=== PATIENT | female | born 1950 | race Caucasian/White ===

== ENCOUNTER 2022-09-07 18:22 | Emergency (ER) | payer MEDICARE, MEDICAID, SELFPAY ==
[2022-09-07 18:23] VITALS: BP 109/97; PULSE 78; RESP 18; TEMP 36.4; O2SAT 97; BMI 36.3
--- NOTE | 2022-09-07 19:00 | RAD_ITS ---
INDICATION: Pain EXAMINATION/TECHNIQUE: X-RAY - RIGHT XR Knee Complete 4 Views or More 4 VIEWS COMPARISON: None FINDINGS: SOFT TISSUES: No soft tissue swelling or gas. No radiopaque foreign body. BONES/JOINTS: No acute fracture or subluxation. Tricompartmental joint spaces are maintained. Small tricompartmental osteophytes. No sclerotic or destructive changes observed. RAD/Knee 4 or More Views IMPRESSION: Mild DJD. No acute abnormal finding in the knee. Electronically Signed: Anselmo Rosas MD at 19:23 EDT ,
--- NOTE | 2022-09-07 19:59 | ED.VIS.LOWEX ---
HPI History of Present Illness Chief Complaint: Lower Extremity Injury Informant: patient Narrative Narrative: 1 week gradual onset and worsening right knee pain. Hurts more to bend and to walk on, better to rest. No fevers, chills, swelling that she has noticed, redness, or any other joints affected. She denies any known injury but states that she may have had a minor misstep and twist but she is not sure. She does not have a history of knee problems. PFSH PFS Home Medications atorvastatin 20 mg tablet 20 mg PO DAILY 09/07/22 [History Last Taken Unknown] bupropion HCl 150 mg 24 hr tablet, extended release 150 mg PO DAILY 09/07/22 [History Last Taken Unknown] cholecalciferol (vitamin D3) 125 mcg (5,000 unit) tablet (Vitamin D3) 125 mcg PO DAILY 09/07/22 [History Last Taken Unknown] clopidogrel 75 mg tablet 75 mg PO DAILY 09/07/22 [History Last Taken Unknown] cyanocobalamin (vitamin B-12) 1,000 mcg tablet (Vitamin B-12) 1,000 mcg PO DAILY 09/07/22 [History Last Taken Unknown] loperamide 2 mg capsule 2 mg PO DAILY PRN PRN Loose Stool 09/07/22 [History Last Taken Unknown] metformin 500 mg tablet 500 mg PO BID 09/07/22 [History Last Taken Unknown] metoprolol tartrate 100 mg tablet 100 mg PO DAILY 09/07/22 [History Last Taken Unknown] mirabegron 50 mg tablet,extended release 24 hr (Myrbetriq) 50 mg PO DAILY 09/07/22 [History Last Taken Unknown] montelukast 10 mg tablet 10 mg PO DAILY 09/07/22 [History Last Taken Unknown] pantoprazole 40 mg tablet,delayed release 40 mg PO DAILY 09/07/22 [History Last Taken Unknown] topiramate 50 mg tablet 50 mg PO BID 09/07/22 [History Last Taken Unknown] Allergy/AdvReac Type Severity Reaction Status Date / Time acetaminophen [From Percocet] Allergy Other Verified 09/07/22 18:23 adhesive tape Allergy Rash Verified 09/07/22 18:23 oxycodone [From Percocet] Allergy Other Verified 09/07/22 18:23 Sulfa (Sulfonamide Allergy Other Verified 09/07/22 18:23 Antibiotics) Social History Smoking Status: Former smoker ROS ROS ED Constitutional Constitutional ED: Denies chills or fever(s) Musculoskeletal Musculoskeletal: Reports extremity pain; Denies neck pain Integumentary Denies Abrasions, rash or wounds Neurologic Neurologic: Denies paresthesias or weakness EXAM Physical Exam Const Vital Signs: 09/07/22 18:23 Temperature 97.5 F L Temperature Source Temporal Pulse Rate 78 Respiratory Rate 18 Blood Pressure 109/97 H Blood Pressure Mean 101 Pulse Ox 97 Oxygen Delivery Method Room Air Positive well nourished and well developed General Appearance ED: well developed and NAD Neck full ROM and supple Back/Spine normal ROM and normal to inspection Extremity normal to inspection Extremity Narrative: Excellent range of motion of the right knee, limited at flexion. No definite palpable effusion. Mild tenderness anteromedially, more caudal to the medial aspect of the patellar ligament, which is also mildly sore. Extensor mechanism intact. No specific bony tenderness. No excessive warmth compared to surrounding areas or contralateral knee, no erythema or other skin lesions. Neuro oriented x3, no focal motor deficits and no sensory deficits noted Sensorium / Orientation: alert Psych mental status grossly normal and thought process normal Skin no wounds Rashes: no rashes MDM MDM MDM Narrative Medical decision making narrative: 4 view x-ray series of the right knee was obtained and is negative for anything acute on my interpretation. Radiology in agreement. Specifically, her joint space appears symmetric and does not appear to be severely arthritic, she does not have a large effusion, and I see no radiopaque foreign bodies or signs of a fracture. Patient was given an Ramesh wrap a dose of ibuprofen here and follow-up with orthopedics as advised. She will need follow-up if this persists to evaluate for internal derangement I do not think she needs an arthrocentesis at this time and she was comfortable with that plan. The radiologist did find mild DJD in the knee on x-ray. Radiography Diagnostic Testing: Clinical Impression(s) from Imaging Studies Knee X-Ray 09/07/22 19:00 IMPRESSION: Mild DJD. No acute abnormal finding in the knee. Electronically Signed: Anselmo Rosas MD at 19:23 EDT , Discharge Plan Triage Chief Complaint: Lower Extremity Injury ED Provider: Domingo Stinson Dx/Rx/DC Orders Clinical Impression: Acute pain of right knee Instructions: ED Bandage Elastic Wrap, ED Knee Pain of Uncertain Cause Prescriptions: No Action metformin 500 mg Tablet 500 mg PO BID atorvastatin 20 mg Tablet 20 mg PO DAILY loperamide 2 mg Capsule 2 mg PO DAILY PRN PRN (Reason: Loose Stool) Rx Instructions: administer after each loose stool until symptoms controlled; do not exceed 8 mg per 24 hrs metoprolol tartrate 100 mg Tablet 100 mg PO DAILY cyanocobalamin (vitamin B-12) [Vitamin B-12] 1,000 mcg Tablet 1,000 mcg PO DAILY clopidogrel 75 mg Tablet 75 mg PO DAILY pantoprazole 40 mg Tablet,Delayed Release (Dr/Ec) 40 mg PO DAILY montelukast 10 mg Tablet 10 mg PO DAILY bupropion HCl 150 mg Tablet Extended Release 24 Hr 150 mg PO DAILY topiramate 50 mg Tablet 50 mg PO BID cholecalciferol (vitamin D3) [Vitamin D3] 125 mcg (5,000 unit) Tablet 125 mcg PO DAILY Myrbetriq 50 mg Tablet Extended Release 24 Hr 50 mg PO DAILY Primary Care Provider: Zhou Hoskins Referrals: Zhou Hoskins MD [Primary Care Provider] - Chato Gamez MD [Med Staff - Active Staff] - As soon as possible Disposition Disposition: Home, Self Care
[2022-09-07] MEDS: Ibuprofen 200 MG Tablet 400 MG PO (20:11)
[2022-09-07 20:12] VITALS: BP 120/62; PULSE 73; RESP 16; TEMP 36.1
== END 2022-09-07 20:20 | disposition home or self-care (01) ==
PROVIDERS: Emergency Provider Emergency Medicine; PCP Family Medicine; Visit Provider Emergency Medicine
DX: M25.561 Pain in right knee (principal); Z87.891 Personal history of nicotine dependence; M17.11 Unilateral primary osteoarthritis, right knee
CPT/HCPCS: 73564; 99283

== ENCOUNTER 2022-09-22 17:34 | Emergency (ER) | payer MEDICARE, MEDICAID, SELFPAY ==
[2022-09-22 17:35] VITALS: PULSE 71; RESP 16; TEMP 36.6; O2SAT 100; BMI 37.1
[2022-09-22 17:38] VITALS: BP 158/86
--- NOTE | 2022-09-22 18:49 | ED.VIS.LOWEX ---
HPI History of Present Illness Chief Complaint: Lower Extremity Injury Narrative Narrative: 72-year-old female, on Plavix, presents with right lateral knee pain that has been ongoing for at least 3 weeks. She denies any recent trauma or other injury to her knee. It is worse with weightbearing and walking. She states that she was here 3 weeks ago in the emergency department and has not been able to follow-up with orthopedics. She feels that the pain has been getting worse, and she has times when her right knee will lock up on her. She has to force it to straighten it out, and cannot necessarily completely extend her right knee. Then, over the last few days, there is an area that is swollen on her right medial proximal calf. Once again, she denies any trauma, and it is mildly tender to touch. There has been no change in color of her skin, no fevers or chills, no chest pain or shortness of breath or other symptoms. PFSH PFSH Medical History no medical history Home Medications atorvastatin 20 mg tablet 20 mg PO DAILY 09/07/22 [History Last Taken Unknown] bupropion HCl 150 mg 24 hr tablet, extended release 150 mg PO DAILY 09/07/22 [History Last Taken Unknown] clopidogrel 75 mg tablet 75 mg PO DAILY 09/07/22 [History Last Taken Unknown] cyanocobalamin (vitamin B-12) 1,000 mcg tablet (Vitamin B-12) 1,000 mcg PO DAILY 09/07/22 [History Last Taken Unknown] loperamide 2 mg capsule 2 mg PO DAILY PRN PRN Loose Stool 09/07/22 [History Last Taken Unknown] metformin 500 mg tablet 500 mg PO BID 09/07/22 [History Last Taken Unknown] metoprolol tartrate 100 mg tablet 100 mg PO DAILY 09/07/22 [History Last Taken Unknown] mirabegron 50 mg tablet,extended release 24 hr (Myrbetriq) 50 mg PO DAILY 09/07/22 [History Last Taken Unknown] montelukast 10 mg tablet 10 mg PO DAILY 09/07/22 [History Last Taken Unknown] pantoprazole 40 mg tablet,delayed release 40 mg PO DAILY 09/07/22 [History Last Taken Unknown] topiramate 50 mg tablet 50 mg PO BID 09/07/22 [History Last Taken Unknown] cholecalciferol (vitamin D3) 1,250 mcg (50,000 unit) capsule 50,000 unit PO QWEEK 09/22/22 [History Last Taken Unknown] Allergy/AdvReac Type Severity Reaction Status Date / Time adhesive tape Allergy Rash Verified 09/22/22 17:37 oxycodone [From Percocet] Allergy Other Verified 09/22/22 17:37 Sulfa (Sulfonamide Allergy Other Verified 09/22/22 17:37 Antibiotics) Social History Smoking Status: Former smoker ROS ROS ED ROS Narrative Constitutional: No fever, no chills. HEENT: No sore throat. No neck pain. No loss of vision. No rhinorrhea. Cardiovascular: No chest pain. No palpitations. No pedal edema. Respiratory: No cough, no shortness of breath. Abdominal: No abdominal pain. No nausea. No vomiting. Genitourinary: No dysuria. No hematuria. Musculoskeletal: No myalgias. Right lateral knee pain, right medial proximal calf swelling and tenderness Neurologic: No headaches. No dizziness. No lightheadedness. Skin: No rash. No change in color. Psychiatric: No depression. No anxiety. EXAM Physical Exam Narrative Exam Narrative: Afebrile. Vital signs noted. HEENT: Normocephalic. Atraumatic. PERRL, EOMI. Neck soft and supple. No point tenderness or step off. Cardiovascular: Regular rate and rhythm. No murmurs, rubs, or gallops appreciated. Respiratory: No tachypnea. Lungs clear to auscultation bilaterally. Gastrointestinal: Abdomen soft, nontender, with normoactive bowel sounds. No rebound or guarding. Neurological: Awake. Alert. Nonfocal, nonlateralizing. Skin: No rash. Normal color. No pallor. Musculoskeletal: No pedal edema. Full range of motion extremities. Flexion and extension mechanism of right knee intact, mild tenderness along right lateral meniscal line. Mild swelling noted on skin and medial proximal portion of calf, no palpable cord, no erythema. Palpable dorsalis pedis pulse. Const Vital Signs: 09/22/22 17:35 09/22/22 17:38 Temperature 97.8 F Temperature Source Temporal Pulse Rate 71 Respiratory Rate 16 Blood Pressure 158/86 H Blood Pressure Mean 110 Pulse Ox 100 Oxygen Delivery Method Room Air MDM MDM MDM Narrative Medical decision making narrative: I reviewed the patient's prior record from 3 weeks ago and her emergency department visit. She had x-rays performed in 4 views which showed mild degenerative changes according to the radiologist. I will repeat the x-rays as she states that her pain is worsening, but I do favor that she has more of an internal derangement of her right knee and a possible lateral meniscal tear. I am unsure as to why she has localized swelling in her medial calf area proximally. I have lower suspicion for DVT. Ultrasound will be obtained regardless. I interpreted her right knee x-ray and see osteoarthritis of the lateral compartment but no evidence of an acute fracture. I reviewed the radiology report which confirms my independent interpretation. DVT study report was reviewed and there is no evidence of acute DVT. I am unsure as to the cause of her localized swelling of her right lower extremity medially, but I do feel she can be discharged safely home with follow-up. She will be given an Ramesh wrap and told to take [id number] analgesics and follow-up with orthopedics as soon as possible. She can also follow-up with her primary care provider. Return instructions to the emergency department were reviewed. Disposition is discharged home in stable condition. History & Record Review Discussion w/independent historian: Patient Additional record(s) reviewed:: Prior ED visit Radiography Diagnostic Testing: Clinical Impression(s) from Imaging Studies Knee X-Ray 09/22/22 19:00 IMPRESSION: Degenerative arthrosis. Electronically Signed: Freeman Gruber MD at 19:14 EDT , Venous Duplex 09/22/22 19:56 IMPRESSION: There is no demonstrated deep venous thrombosis. Electronically Signed: Freeman Gruber MD at 20:47 EDT , Discharge Plan Triage Chief Complaint: Lower Extremity Injury ED Provider: Homero Barajas Dx/Rx/DC Orders Clinical Impression: Knee pain, Knee osteoarthritis, Localized swelling of right lower leg Instructions: ED Meniscal Injury Knee Poss, ED Osteoarthritis Prescriptions: No Action metformin 500 mg Tablet 500 mg PO BID atorvastatin 20 mg Tablet 20 mg PO DAILY loperamide 2 mg Capsule 2 mg PO DAILY PRN PRN (Reason: Loose Stool) Rx Instructions: administer after each loose stool until symptoms controlled; do not exceed 8 mg per 24 hrs metoprolol tartrate 100 mg Tablet 100 mg PO DAILY cyanocobalamin (vitamin B-12) [Vitamin B-12] 1,000 mcg Tablet 1,000 mcg PO DAILY clopidogrel 75 mg Tablet 75 mg PO DAILY pantoprazole 40 mg Tablet,Delayed Release (Dr/Ec) 40 mg PO DAILY montelukast 10 mg Tablet 10 mg PO DAILY bupropion HCl 150 mg Tablet Extended Release 24 Hr 150 mg PO DAILY topiramate 50 mg Tablet 50 mg PO BID Myrbetriq 50 mg Tablet Extended Release 24 Hr 50 mg PO DAILY cholecalciferol (vitamin D3) 1,250 mcg (50,000 unit) capsule 50,000 unit PO QWEEK Label Comments: TAKE ONE CAPSULE BY MOUTH EVERY WEEK -SUNDAYS Primary Care Provider: Zhou Hoskins Referrals: Zhou Hoskins MD [Primary Care Provider] - Kailash Vee MD [Med Staff - Active Staff] - As soon as possible Activity Restrictions/Additional Instructions: Follow-up with your primary care physician and/or orthopedics as soon as possible. Use Ramesh wrap for support of your right knee. Disposition Disposition: Home, Self Care
--- NOTE | 2022-09-22 19:00 | RAD_ITS ---
STUDY: XR Knee Complete 4 Views or More 09/22/2022 7:12 PM REASON FOR EXAM: Female, 72 years old. pain TECHNIQUE: XR Knee Complete 4 Views or More RIGHT COMPARISON: None FINDINGS: Normal visualized distal femur. Normal visualized proximal tibia and fibula. Normal proximal tibiofibular articulation. There are atherosclerotic vascular calcifications. There is mild degenerative arthrosis of the medial femorotibial compartment. There is mild degenerative arthrosis of the lateral femorotibial compartment. There is mild degenerative arthrosis of the patellofemoral articulation. The soft tissue structures are unremarkable. RAD/Knee 4 or More Views IMPRESSION: Degenerative arthrosis. Electronically Signed: Freeman Gruber MD at 19:14 EDT ,
--- NOTE | 2022-09-22 19:56 | US_ITS ---
STUDY: VENOUS DOPPLER ULTRASOUND - RIGHT LOWER EXTREMITY REASON FOR EXAM: Female, 72 years old. LEG PAIN AND SWELLING right calf swelling TECHNIQUE: Ultrasound evaluation of the deep vein system to include cov[place]-scale imaging and compression was performed. [place]-scale imaging and Doppler sonographic evaluation, including duplex spectral analysis and qualitative color flow sonography, was performed. COMPARISON: None. FINDINGS: Common Femoral Vein: Normal compression, spontaneity and augmentation. Normal color Doppler. Common Femoral Vein/Greater Saphenous Junction: Normal compression, spontaneity and augmentation. Normal color Doppler. Superficial Femoral Proximal: Normal compression, spontaneity and augmentation. Normal color Doppler. Superficial Femoral Middle: Normal compression, spontaneity and augmentation. Normal color Doppler. Superficial Femoral Distal: Normal compression, spontaneity and augmentation. Normal color Doppler. Popliteal Vein: Normal compression, spontaneity and augmentation. Normal color Doppler. Posterior Tibial Vein: Normal compression, spontaneity and augmentation. Normal color Doppler. Peroneal Vein: Normal compression, spontaneity and augmentation. Normal color Doppler. There is no demonstrated deep venous thrombosis. US/Venous Duplex Imag/Limited/Uni IMPRESSION: There is no demonstrated deep venous thrombosis. Electronically Signed: Freeman Gruber MD at 20:47 EDT ,
[2022-09-22 22:06] VITALS: BP 124/64; PULSE 76; RESP 16; O2SAT 97
== END 2022-09-22 22:07 | disposition home or self-care (01) ==
PROVIDERS: Emergency Provider Emergency Medicine; PCP Family Medicine; Visit Provider Emergency Medicine
DX: M17.11 Unilateral primary osteoarthritis, right knee (principal); M25.561 Pain in right knee; M79.89 Other specified soft tissue disorders; Z87.891 Personal history of nicotine dependence; Z79.899 Other long term (current) drug therapy; Z79.84 Long term (current) use of oral hypoglycemic drugs
CPT/HCPCS: 73564; 93971; 99282

== ENCOUNTER 2023-03-08 18:36 | Emergency (ER) | payer MEDICARE, MEDICAID, SELFPAY ==
[2023-03-08 18:38] VITALS: BP 140/79; PULSE 75; RESP 16; TEMP 36.7; O2SAT 100; BMI 36.0
[2023-03-08 20:12] VITALS: O2SAT 98
--- NOTE | 2023-03-08 20:40 | ED.VIS.DYS ---
HPI History of Present Illness Chief Complaint: Shortness of Breath Informant: patient Onset/Context/Timing Onset: Weeks (1) Context: gradual Timing: Continuous Quality: Positive for Dyspnea on exertion Worsened by: Exertion Relieved by: Rest Associated Symptoms cough and green sputum; Negative for rhinorrhea, post nasal drip, ear pain, fever, sore throat, chills, sweats, clear sputum, white sputum or yellow sputum Chest Pain: Positive for Intermittent and - (Pinching) Narrative Narrative: Patient presents with shortness of breath that has been getting worse over the past week. Patient states it is gradually getting worse. Patient states it is worse with any exertion and better with rest. Patient states she is coughing up some green sputum. Patient denies any fevers or chills. Patient admits to some intermittent chest pain that last approximately 5 to 10 minutes. Patient describes it as pinching. Patient states it is over the substernal area. Patient states nothing makes it better nothing makes it worse. Patient also admits to some pain in her right flank that has been constant for the past 2 weeks. Patient denies any dysuria or hematuria. Patient denies any fevers or chills. PE Risk Factors: Negative for Cancer, OCP + Smoking + > 35, Prior DVT or PE, Recent immobilization or Recent surgery [facility] Medical History (Updated 03/08/23 @ 23:[address] Andrea Apple, ) A-fib Chronic kidney disease COPD (chronic obstructive pulmonary disease) Depression Diabetes mellitus GERD (gastroesophageal reflux disease) High cholesterol HTN (hypertension) Osteoarthritis of right knee POTS (postural orthostatic tachycardia syndrome) Home Medications atorvastatin 20 mg tablet 20 mg PO DAILY 09/07/22 [History Last Taken Unknown] bupropion HCl 150 mg 24 hr tablet, extended release 150 mg PO DAILY 09/07/22 [History Last Taken Unknown] clopidogrel 75 mg tablet 75 mg PO DAILY 09/07/22 [History Last Taken Unknown] cyanocobalamin (vitamin B-12) 1,000 mcg tablet (Vitamin B-12) 1,000 mcg PO DAILY 09/07/22 [History Last Taken Unknown] loperamide 2 mg capsule 2 mg PO DAILY PRN PRN Loose Stool 09/07/22 [History Last Taken Unknown] metformin 500 mg tablet 500 mg PO BID 09/07/22 [History Last Taken Unknown] metoprolol tartrate 100 mg tablet 100 mg PO DAILY 09/07/22 [History Last Taken Unknown] mirabegron 50 mg tablet,extended release 24 hr (Myrbetriq) 50 mg PO DAILY 09/07/22 [History Last Taken Unknown] montelukast 10 mg tablet 10 mg PO DAILY 09/07/22 [History Last Taken Unknown] pantoprazole 40 mg tablet,delayed release 40 mg PO DAILY 09/07/22 [History Last Taken Unknown] topiramate 50 mg tablet 50 mg PO BID 09/07/22 [History Last Taken Unknown] cholecalciferol (vitamin D3) 1,250 mcg (50,000 unit) capsule 50,000 unit PO QWEEK 09/22/22 [History Last Taken Unknown] citalopram 20 mg tablet 20 mg PO DAILY 11/19/22 [History Last Taken Unknown] levothyroxine 50 mcg capsule 50 mcg PO DAILY 11/19/22 [History Last Taken Unknown] loratadine 10 mg tablet (Allergy Relief (loratadine)) 10 mg PO DAILY 11/19/22 [History Last Taken Unknown] sucralfate 1 gram tablet 1 g PO BID 11/19/22 [History Last Taken Unknown] trazodone 50 mg tablet 50 mg PO DAILY 11/19/22 [History Last Taken Unknown] amoxicillin 875 mg-potassium clavulanate 125 mg tablet 875 mg (0.875 x 875-125 mg) PO Q12H #10 TABLETS 03/08/23 [Rx Last Taken Unknown] Allergy/AdvReac Type Severity Reaction Status Date / Time adhesive tape Allergy Rash Verified 03/08/23 18:37 oxycodone [From Percocet] Allergy Other Verified 03/08/23 18:37 Sulfa (Sulfonamide Allergy Other Verified 03/08/23 18:37 Antibiotics) Surgical History (Updated 03/08/23 @ 23:[address] Andrea Apple DO) History of ankle surgery History of carpal tunnel surgery Hx of appendectomy Hx of hysterectomy Hx of tubal ligation Social History Smoking Status: Former smoker alcohol intake: never ROS ROS ED Constitutional Constitutional ED: Denies chills or fever(s) Eyes Eyes: Denies blurry vision or change in vision ENT ENT ED: Reports rhinorrhea; Denies sore throat Cardiovascular Cardiovascular: Reports chest pain; Denies palpitations Respiratory/Chest Respiratory/Chest: Reports cough and dyspnea Gastrointestinal Gastrointestinal: Denies nausea or vomiting Genitourinary Genitourinary ED: Denies dysuria or hematuria Musculoskeletal Musculoskeletal: Reports neck pain; Denies back pain Integumentary Denies abscess or rash Neurologic Neurologic: Denies headache(s) or weakness Allergic/Immunologic Allergic/Immunologic ED: Denies mouth swelling or urticaria EXAM Physical Exam Const Vital Signs: 03/08/23 18:38 03/08/23 20:12 03/08/23 21:18 Temperature 98.1 F Temperature Source Temporal Pulse Rate 75 71 Respiratory Rate 16 14 Respiratory Effort Normal Non-Labored Respiratory Depth Normal Respiratory Pattern Normal Normal Blood Pressure 140/79 H Blood Pressure Mean 99 Pulse Ox 100 Oxygen Delivery Method Room Air Room Air 03/08/23 22:00 Temperature Temperature Source Pulse Rate 74 Respiratory Rate 16 Respiratory Effort Respiratory Depth Respiratory Pattern Blood Pressure 148/74 H Blood Pressure Mean 98 Pulse Ox 96 Oxygen Delivery Method Room Air Positive well nourished and well developed General Appearance ED: well developed and NAD HEENT Reports moist mucous membranes Neck supple and no JVD Resp normal respiratory effort Auscultation: diminished lung sounds diffuse Cardio regular rate and regular rhythm GI non-tender and non-distended Palpation: soft; Negative for rebound tenderness present Back/Spine General Back: CVA tenderness right (Mild) Neuro oriented x3, CN's II-XII intact bilaterally and no sensory deficits noted Juan Coma Scale: document GCS findings Spontaneous Obeys Commands Oriented 15 Sensorium / Orientation: alert Motor Exam: strength 5/5 throughout Psych mental status grossly normal MDM MDM MDM Narrative Medical decision making narrative: Differential diagnosis includes COPD exacerbation, pneumonia, pneumothorax, cardiac dysrhythmia, cardiac ischemia, urinary tract infection, pyelonephritis, and ureteral calculus. EKG will be obtained to assess for cardiac dysrhythmia and cardiac ischemia. Chest x-ray will be obtained to assess for pneumonia and pneumothorax. CT scan of the abdomen pelvis will be obtained to assess for ureteral calculus and pyelonephritis. CBC will be obtained to assess for leukocytosis and anemia. Basic metabolic profile will be obtained to assess for electrolyte abnormality and renal function. High-sensitivity troponin will be obtained to assess for cardiac ischemia. Urinalysis will be obtained to assess for urinary tract infection. Lab Data Attestation: I reviewed the patient's lab results. Lab results narrative: CBC was reviewed and was essentially within normal limits. Basic metabolic profile was reviewed. BUN was 22 and creatinine was 1.66. There are no prior labs available for comparison however, patient states she does have a history of chronic kidney disease. High-sensitivity troponin was reviewed and was normal at 5. Urinalysis was reviewed. Leukocyte esterase was 500 with 5-10 white blood cells. There is rare bacteria. Labs: Laboratory Results - last 24 hr 03/08/23 03/08/23 20:35 20:40 WBC 6.5 RBC 3.88 L Hgb 12.0 Hct 37.8 MCV 97.4 MCH 30.9 MCHC 31.7 L RDW Std Deviation 46.9 H RDW Coeff of [place]hel[place] 13.1 Plt Count 309 MPV 9.8 Immature Gran % (Auto) 0.600 Neut % (Auto) 51.5 Lymph % (Auto) 24.6 [place] % (Auto) 14.5 H Eos % (Auto) 7.7 H Baso % (Auto) 1.1 H Absolute Neuts (auto) 3.4 Absolute Lymphs (auto) 1.60 Nucleated RBC % 0 Sodium 140 Potassium 4.2 Chloride 110 H Carbon Dioxide 26.0 Anion Gap 4 L BUN 22 H Creatinine 1.66 H Estim Creat Clear Calc 29.79 Est GFR (MDRD) Af Amer 39 L Est GFR (MDRD) Non-Af 32 L BUN/Creatinine Ratio 13.3 Glucose 84 Calcium 9.2 Troponin I High Sens 5 Urine Color Yellow Urine Clarity Clear Urine pH 6.0 Ur Specific [place] 1.015 Urine Protein Negative Urine Glucose (UA) Normal Urine Ketones Negative Urine Occult Blood Negative Urine Nitrite Negative Urine Bilirubin Negative Urine Urobilinogen Normal Ur Leukocyte Esterase 500 H Urine RBC 0 SEEN Urine WBC 5-10 SEEN Ur Squamous Epith Cells 0-5 SEEN Ur Renal Epithelial Cell 0-5 SEEN Urine Bacteria RARE Urine Mucus 0 SEEN Radiography Diagnostic Testing: Clinical Impression(s) from Imaging Studies Chest X-Ray 03/08/23 20:50 IMPRESSION: Interstitial lung disease versus fibrosis with multifocal multilobar atelectasis versus scarring. Cannot exclude superimposed subpleural pneumonitis. Clinical correlation recommended. Electronically Signed: Sofia Zapata MD at 21:31 EST , PA and lateral chest x-ray was obtained. There are 2 views. On my independent interpretation, there are chronic changes. There is no acute infiltrate noted. There is no cardiomegaly noted. Bony thorax is normal. Radiologist also interpreted the x-rays and agrees. EKG Initial EKG: Attestation: I personally reviewed and interpreted this EKG as follows: Interpretation: Sinus Rhythm (68) and No Acute Injury Pattern Comments: EKG was obtained. On my independent interpretation, it showed a normal sinus rhythm with a rate of 68. MD interval, QRS interval, and QTc intervals were all normal. [place] was normal. There are no acute ST or T wave changes. There is low voltage across the precordial leads. Prior EKG tracings: not available for review Prior: No Prior Treatment and Re-Evaluation :: Patient was given a DuoNeb aerosol here. Patient was given a dose of morphine. Patient was advised of her findings. Urine culture was ordered. Patient was given a dose of Augmentin here. Patient was given a prescription for Augmentin. Patient was instructed to follow-up with her primary care physician in 5 to 7 days. Patient was instructed return if worse in any way. Patient understood and was agreeable with the plan. All questions were answered. Discharge Plan Triage Chief Complaint: Shortness of Breath ED Provider: Andrea Apple Dx/Rx/DC Orders Clinical Impression: Acute exacerbation of chronic obstructive pulmonary disease, Chronic kidney disease, Urinary tract infection Instructions: ED COPD Flare, ED Cystitis Female Adult Prescriptions: New amoxicillin-pot clavulanate [amoxicillin-pot clavulanate] 875-125 mg tablet 875 mg PO Q12H Qty: 10 0RF No Action citalopram 20 mg tablet 20 mg PO DAILY levothyroxine 50 mcg capsule 50 mcg PO DAILY loratadine [Allergy Relief (loratadine)] 10 mg tablet 10 mg PO DAILY sucralfate 1 gram tablet 1 g PO BID trazodone 50 mg tablet 50 mg PO DAILY metformin 500 mg Tablet 500 mg PO BID atorvastatin 20 mg Tablet 20 mg PO DAILY loperamide 2 mg Capsule 2 mg PO DAILY PRN PRN (Reason: Loose Stool) Rx Instructions: administer after each loose stool until symptoms controlled; do not exceed 8 mg per 24 hrs metoprolol tartrate 100 mg Tablet 100 mg PO DAILY cyanocobalamin (vitamin B-12) [Vitamin B-12] 1,000 mcg Tablet 1,000 mcg PO DAILY clopidogrel 75 mg Tablet 75 mg PO DAILY pantoprazole 40 mg Tablet,Delayed Release (Dr/Ec) 40 mg PO DAILY montelukast 10 mg Tablet 10 mg PO DAILY bupropion HCl 150 mg Tablet Extended Release 24 Hr 150 mg PO DAILY topiramate 50 mg Tablet 50 mg PO BID Myrbetriq 50 mg Tablet Extended Release 24 Hr 50 mg PO DAILY cholecalciferol (vitamin D3) 1,250 mcg (50,000 unit) capsule 50,000 unit PO QWEEK Patient Comments: TAKE ONE CAPSULE BY MOUTH EVERY WEEK -SUNDAYS Primary Care Provider: Zhou Hoskins Referrals: Zhou Hoskins MD [Primary Care Provider] - 3-5 Days Disposition Disposition: Home, Self Care
--- NOTE | 2023-03-08 20:50 | RAD_ITS ---
STUDY: X-RAY CHEST REASON FOR EXAM: Female, 72 years old. Dyspnea TECHNIQUE: PA and lateral views of the chest. COMPARISON: None. FINDINGS: Mild interstitial prominence predominantly in a subpleural distribution concerning for pneumonitis versus interstitial lung disease/pulmonary fibrosis. Areas of scarring versus atelectasis within the right perihilar region and bilateral lower lobes. There is no demonstrated pleural abnormality. Normal size heart. Normal mediastinum and saul. Normal visualized pulmonary arteries. There is atherosclerotic calcification of the aortic arch with tortuosity. There is demineralization of the osseous structures. There is degenerative osteoarthritis of the bilateral shoulders and spine. Abundant fecal debris within the colon suggestive of constipation. RAD/Chest PA and Lateral IMPRESSION: Interstitial lung disease versus fibrosis with multifocal multilobar atelectasis versus scarring. Cannot exclude superimposed subpleural pneumonitis. Clinical correlation recommended. Electronically Signed: Sofia Zapata MD at 21:31 EST ,
[2023-03-08 20:57] LABS: Mucous, Urine 0 SEEN /hpf (<or=2+); Red Blood Cells-Urine 0 SEEN /hpf (0-5)
[2023-03-08 21:01] LABS: Color, Urine Yellow (Yellow); Glucose, Dipstick Normal (Normal); Ketone-Dipstick Negative (Negative); Leukocyte Esterase-Dipstick 500 /ul (Negative); Nitrite-Dipstick Negative (Negative); Occult Blood-Urine Negative /ul (Negative); Protein-Dipstick Negative (Negative); Specific Gravity, Urine 1.015 (1.002-1.030); Urine Bilirubin Dipstick Negative (Negative); Urine Clarity Clear (Clear); Urine Urobilinogen Normal (Normal)
[2023-03-08 21:02] LABS: Absolute Neutrophil Count 3.4 X10^3/uL (2.0-7.7); Basophil# 0.07 X10^3/uL; Basophil% 1.1 % (0-1); Eosinophils% 7.7 % (0-5); Hematocrit 37.8 % (37-47); Lymphocyte % 24.6 % (19-41); Mean Corp Hgb Conc 31.7 g/dL (32-36); Mean Corpuscular Hgb 30.9 pg (27.0-32.0); Mean Corpuscular Volume 97.4 fL (81-99); Mean Platelet Vol. 9.8 fl (6.2-12.0); Monocyte# 0.94 X10^3/uL; Monocyte% 14.5 % (0-10); NRBC Flagged by Analyzer 0 % (0-5); Neutrophil # 3.35 X10^3/uL (2.7-7.7); Neutrophil % 51.5 % (47-70); Platelet Count 309 K/mm3 (150-450); RBC Distribution Width CV 13.1 % (11.6-14.6); RBC Distribution Width SD 46.9 fl (35.1-43.9); Red Blood Count 3.88 M/mm3 (4.2-5.4); White Blood Count 6.5 K/mm3 (4.4-11.0)
[2023-03-08 21:18] VITALS: PULSE 71; RESP 14
[2023-03-08 21:18] LABS: Renal Epithelial Cells 0-5 SEEN /hpf (0-5); Squamous Epithelial Cells - UA 0-5 SEEN /hpf (5-10); White Blood Cells 5-10 SEEN /hpf (0-5)
[2023-03-08] MEDS: Ipratropium/Albuterol Sulfate 3 ML AMPUL.NEB INHALATION (21:18)
[2023-03-08 21:19] LABS: Bacteria RARE /hpf (None Seen)
[2023-03-08 21:23] LABS: Anion Gap 4 (5-15); BUN 22 mg/dL (7-18); BUN/Creat Ratio 13.3 RATIO (10-20); Calcium,Total 9.2 mg/dL (8.5-10.1); Chloride 110 mmol/L (98-107); Creatinine, Serum 1.66 mg/dL (0.55-1.02); EST Glomerular Filtration Rate 32 mL/min (>60); Est Glom Filt Rate - Afr Amer 39 mL/min (>60); Estimated Creatinine Clearance 29.79 ml/min; Glucose 84 mg/dL (74-106); Potassium 4.2 mmol/L (3.5-5.1); Sodium Level 140 mmol/L (136-145); Troponin-I HS 5 pg/mL (3.0-54.0)
[2023-03-08 22:00] VITALS: BP 148/74; PULSE 74; RESP 16; O2SAT 96
--- NOTE | 2023-03-08 22:37 | CT_ITS ---
STUDY: CT ABDOMEN AND PELVIS WITHOUT CONTRAST REASON FOR EXAM: Female, 72 years old. Right flank pain RADIATION DOSAGE (If Supplied By Facility): CTDIvol = ( 20.21 ) mGy, DLP = ( 1080.48 ) mGycm TECHNIQUE: Transaxial images were obtained from the dome of the diaphragm to the symphysis pubis without oral contrast, and without intravenous contrast. Sagittal and coronal images were reconstructed. Individualized dose optimization techniques were used for this CT. COMPARISON: None. FINDINGS: Lung bases reveal subpleural interstitial changes with honeycombing concerning for pulmonary fibrosis. Mild groundglass opacities in a subpleural and lower lobe distribution does not exclude superimposed pneumonitis. Normal cardiac size with coronary artery calcifications. Low-attenuation structure within the left liver lobe junction with the right lobe just below the dome of the diaphragm measuring 1.5 cm compatible with liver cysts. Otherwise normal liver. Normal gallbladder and extrahepatic biliary system. Normal spleen. Normal pancreas. Normal bilateral adrenal glands. Normal right kidney. Normal left kidney. Normal visualized stomach. Normal small intestine. Mild diverticulosis with no signs of diverticulitis. There are surgical clips in the region of the appendix consistent with a prior appendectomy. There is diffuse atherosclerotic calcification of the abdominal aorta, without a demonstrated aneurysm. Normal inferior vena cava. Normal retroperitoneum. Normal urinary bladder. There is absence of the uterus consistent with a prior hysterectomy. Normal abdominal wall. There are diffuse degenerative changes of the visualized lumbar spine. Stable diffuse osteopenia. CT/Abdomen/Pelvis without Cont IMPRESSION: Unremarkable bilateral kidneys with no hydronephrosis or intrarenal stone. Remainder of abdominal viscera within normal limits. Mild increased fecal debris within the colon, cannot exclude mild constipation. Mild diverticulosis with no signs of diverticulitis. Question prior appendectomy otherwise no bowel obstruction or focal inflammatory process throughout the gastrointestinal tract. Electronically Signed: Sofia Zapata MD at 23:12 EST ,
[2023-03-08] MEDS: Morphine 4 MG/ML Syringe IV (22:43)
[2023-03-08 23:40] VITALS: PULSE 63; RESP 12; O2SAT 99
[2023-03-08] MEDS: Amox/Clavulanate 875 MG Tablet PO (23:41)
== END 2023-03-08 23:46 | disposition home or self-care (01) ==
PROVIDERS: Emergency Provider Emergency Medicine; PCP Family Medicine; Visit Provider Emergency Medicine
DX: J44.1 Chronic obstructive pulmonary disease with (acute) exacerbation (principal); E11.22 Type 2 diabetes mellitus with diabetic chronic kidney disease; N39.0 Urinary tract infection, site not specified; N18.9 Chronic kidney disease, unspecified; Z87.891 Personal history of nicotine dependence
CPT/HCPCS: 71046; 74176; 80048; 81001; 84484; 85025; 87077; 87086; 87088; 87186; 93005; 94640; 96374; 99284; J7030; A4216

== ENCOUNTER → 2023-03-15 | Outpatient (CLI) | payer MEDICARE, MEDICAID, SELFPAY ==
--- NOTE | 2023-03-15 08:52 | MRI_ITS ---
EXAM: MR RIGHT LOWER EXTREMITY WITHOUT INTRAVENOUS CONTRAST, KNEE CLINICAL INDICATION: Pain TECHNIQUE: Multiplanar and multisequence MR images of the right knee without intravenous contrast. COMPARISON: September 22, 2022 knee angiography FINDINGS: BONES/JOINTS: Moderate amount of suprapatellar joint fluid. Nonspecific patchy marrow signal alterations involving the proximal tibia. No other concerning bone marrow signal alterations. No fracture. No synovial hypertrophy. No intra-articular body. EXTENSOR MECHANISM: Unremarkable. MEDIAL MENISCUS: Unremarkable. LATERAL MENISCUS: Unremarkable. MEDIAL CAPSULE/SUPPORTING STRUCTURES: Unremarkable. Intact. LATERAL CAPSULE/SUPPORTING STRUCTURES: Unremarkable. Lateral collateral ligamentous complex, inclusive of the popliteal tendon, are intact. ANTERIOR CRUCIATE LIGAMENT: Unremarkable. Intact. POSTERIOR CRUCIATE LIGAMENT: Unremarkable. Intact. MUSCLES: Unremarkable. CARTILAGE: Unremarkable. Intact. FLUID: Small Rosado''s cyst without evidence of inferior leakage or rupture. Moderate suprapatellar joint effusion. OTHER SOFT TISSUES: No soft tissue masses or fluid collections. MRI/Lower Ext Joint Only (Routine) IMPRESSION: 1. Moderate osteoarthrosis and moderate suprapatellar joint effusion with small intact Rosado''s cyst. 2. No other significant internal derangement. Electronically Signed: Christiano Bauer MD at 22:58 EST ,
== END | disposition home or self-care (01) ==
LOC: MRI 14:55
PROVIDERS: PCP Family Medicine
DX: M25.561 Pain in right knee (principal)
CPT/HCPCS: 73721

== ENCOUNTER 2023-04-29 19:37 | Emergency (ER) | payer MEDICARE, MEDICAID, SELFPAY ==
[2023-04-29 19:38] VITALS: BP 155/86; PULSE 81; RESP 16; TEMP 36.4; O2SAT 100; BMI 36.3
--- NOTE | 2023-04-29 19:39 | RAD_ITS ---
STUDY: X-RAY - RIGHT SHOULDER REASON FOR EXAM: Female, 72 years old. PAIN TECHNIQUE: 5 view(s) of the shoulder. COMPARISON: None. FINDINGS: There is moderate degenerative arthrosis of the glenohumeral articulation. There is degenerative arthrosis of the acromioclavicular joint without inferior osseous spur formation. Normal acromion. There is demineralization of the humerus and visualized osseous structures. The soft tissue structures are unremarkable. Normal visualized pulmonary apex. RAD/Shoulder min 2 Views IMPRESSION: Degenerative arthrosis Electronically Signed: Bright Moreno MD at 20:02 EST ,
--- NOTE | 2023-04-29 21:42 | ED.RN ---
PT STATES SHE WAS HAVING CHEST PAIN OFF AND ON WHILE IN THE WAITING ROOM. PT STATES SHE TOLD TRIAGE NURSE,BUT FELT SHE DIDN'T HEAR HER SO SHE DIDN'T SAY ANYMORE.PT EDUCATED ON IMPORTANCE OF SPEAKING UP WHEN HAVING CHEST PAIN.
--- NOTE | 2023-04-29 21:48 | RAD_ITS ---
STUDY: X-RAY CHEST REASON FOR EXAM: Female, 72 years old. chest pain TECHNIQUE: Single AP portable view of the chest. COMPARISON: 03/08/2023 FINDINGS: EKG leads overlie the chest Chronic interstitial changes in both lung hernandez without a superimposed acute pulmonary process. There is no demonstrated pleural abnormality. Normal size heart. Normal mediastinum and saul. Normal visualized pulmonary arteries. Normal visualized aortic arch and descending thoracic aorta. Normal visualized thoracic spine. Normal visualized ribs, clavicles, and shoulders. There is no demonstrated abnormality of the visualized soft tissue structures of the upper abdomen. RAD/Chest 1 View (Portable) IMPRESSION: Chronic interstitial changes, no superimposed acute pulmonary process Electronically Signed: Bright Moreno MD at 22:08 EST ,
--- NOTE | 2023-04-29 21:49 | ED.RN ---
NATALIO RT MADE AWARE OF NEED FOR EKG.
[2023-04-29 22:05] LABS: Absolute Lymphocyte Count 1.62 X10^3/uL (0.83-4.51); Absolute Neutrophil Count 4.2 X10^3/uL (2.0-7.7); Basophil# 0.05 X10^3/uL; Basophil% 0.7 % (0-1); Eosinophil# 0.36 X10^3/uL; Eosinophils% 5.2 % (0-5); Hematocrit 37.3 % (37-47); Hemoglobin 11.8 g/dL (12.0-15.0); Lymphocyte # 1.62 X10^3/ul (0.83-4.51); Lymphocyte % 23.3 % (19-41); Mean Corp Hgb Conc 31.6 g/dL (32-36); Mean Corpuscular Hgb 30.2 pg (27.0-32.0); Mean Corpuscular Volume 95.4 fL (81-99); Mean Platelet Vol. 9.9 fl (6.2-12.0); Monocyte# 0.67 X10^3/uL; Monocyte% 9.7 % (0-10); NRBC Flagged by Analyzer 0 % (0-5); Neutrophil # 4.22 X10^3/uL (2.7-7.7); Neutrophil % 60.8 % (47-70); Platelet Count 329 K/mm3 (150-450); RBC Distribution Width CV 12.6 % (11.6-14.6); RBC Distribution Width SD 43.8 fl (35.1-43.9); Red Blood Count 3.91 M/mm3 (4.2-5.4); White Blood Count 6.9 K/mm3 (4.4-11.0)
[2023-04-29 22:21] LABS: Anion Gap 7 (5-15); BUN 22 mg/dL (7-18); BUN/Creat Ratio 13.5 RATIO (10-20); Calcium,Total 9.4 mg/dL (8.5-10.1); Chloride 109 mmol/L (98-107); Creatinine, Serum 1.63 mg/dL (0.55-1.02); EST Glomerular Filtration Rate 33 mL/min (>60); Est Glom Filt Rate - Afr Amer 40 mL/min (>60); Estimated Creatinine Clearance 37.63 ml/min; Glucose 92 mg/dL (74-106); Sodium Level 139 mmol/L (136-145); Troponin-I HS (w/2H Reflex) 4 pg/mL (3.0-54.0)
--- NOTE | 2023-04-29 22:22 | EX.ED.UPPERE ---
HPI History of Present Illness Chief Complaint: Upper Extremity Injury [facility] Medical History A-fib Chronic kidney disease COPD (chronic obstructive pulmonary disease) Depression Diabetes mellitus GERD (gastroesophageal reflux disease) High cholesterol HTN (hypertension) Osteoarthritis of right knee POTS (postural orthostatic tachycardia syndrome) Home Medications atorvastatin 20 mg tablet 20 mg PO DAILY 09/07/22 [History Last Taken Unknown] bupropion HCl 150 mg 24 hr tablet, extended release 150 mg PO DAILY 09/07/22 [History Last Taken Unknown] clopidogrel 75 mg tablet 75 mg PO DAILY 09/07/22 [History Last Taken Unknown] cyanocobalamin (vitamin B-12) 1,000 mcg tablet (Vitamin B-12) 1,000 mcg PO DAILY 09/07/22 [History Last Taken Unknown] loperamide 2 mg capsule 2 mg PO DAILY PRN PRN Loose Stool 09/07/22 [History Last Taken Unknown] metformin 500 mg tablet 500 mg PO BID 09/07/22 [History Last Taken Unknown] metoprolol tartrate 100 mg tablet 100 mg PO DAILY 09/07/22 [History Last Taken Unknown] mirabegron 50 mg tablet,extended release 24 hr (Myrbetriq) 50 mg PO DAILY 09/07/22 [History Last Taken Unknown] montelukast 10 mg tablet 10 mg PO DAILY 09/07/22 [History Last Taken Unknown] pantoprazole 40 mg tablet,delayed release 40 mg PO DAILY 09/07/22 [History Last Taken Unknown] topiramate 50 mg tablet 50 mg PO BID 09/07/22 [History Last Taken Unknown] cholecalciferol (vitamin D3) 1,250 mcg (50,000 unit) capsule 50,000 unit PO QWEEK 09/22/22 [History Last Taken Unknown] citalopram 20 mg tablet 20 mg PO DAILY 11/19/22 [History Last Taken Unknown] levothyroxine 50 mcg capsule 50 mcg PO DAILY 11/19/22 [History Last Taken Unknown] loratadine 10 mg tablet (Allergy Relief (loratadine)) 10 mg PO DAILY 11/19/22 [History Last Taken Unknown] sucralfate 1 gram tablet 1 g PO BID 11/19/22 [History Last Taken Unknown] trazodone 50 mg tablet 50 mg PO DAILY 11/19/22 [History Last Taken Unknown] oxycodone 5 mg tablet 5 mg PO Q6H 03/26/23 [History Last Taken Unknown] Allergy/AdvReac Type Severity Reaction Status Date / Time adhesive tape Allergy Rash Verified 04/29/23 21:34 oxycodone [From Percocet] Allergy Other Verified 04/29/23 21:34 Sulfa (Sulfonamide Allergy Other Verified 04/29/23 21:34 Antibiotics) Surgical History History of ankle surgery History of carpal tunnel surgery Hx of appendectomy Hx of hysterectomy Hx of tubal ligation Social History Smoking Status: Former smoker alcohol intake: never EXAM Physical Exam Const Vital Signs: 04/29/23 19:38 04/29/23 21:49 Temperature 97.5 F L Temperature Source Temporal Pulse Rate 81 Respiratory Rate 16 Blood Pressure 155/86 H Blood Pressure Mean 109 Pulse Ox 100 Oxygen Delivery Method Room Air Room Air MDM MDM MDM Narrative Medical decision making narrative: HISTORY OF PRESENT ILLNESS: 72-year-old female presents with right shoulder pain. Notes she had a minor trauma few days ago and has since pain. Also noted chest pain that started approximate 2 days ago. The patient denies recent surgery in the last 4 weeks or immobilization in the last 3 days, denies previous diagnosis of DVT or PE, hemoptysis, unilateral leg swelling or malignancy with treatment the last 6 months or palliative. No estrogen use noted. Patient denies sudden onset of pain, no tearing sensation, no migratory symptoms, no new numbness, weakness or loss of sensation. Patient denies family history or personal history of Connective tissue disorders (Marfan's Syndrome, Danii Danlos etc) REVIEW OF SYSTEMS: Pertinent positives: Right shoulder pain Pertinent negatives: Shortness of breath, syncope PHYSICAL EXAM: Nursing triage notes reviewed, Vital signs reviewed Constitutional: please see mdm HENT: MMM Eyes: Pupils equal round and reactive to light, Extraocular muscles intact Neck: No stridor, no JVD, full neck ROM Lungs: Clear to auscultation, No wheezing or rales. No increased work of breathing, no conversational dyspnea, no accessory muscle use, no nasal flaring. No respiratory distress noted Heart: Regular rate and rhythm, No murmurs, No rubs and No gallops, 2+ distal pulses (radial, femoral, posterior tibial) in all extremities. TTP over right chest. Abdomen: Soft, there is no tenderness, rigidity, rebound or guarding, no obvious peritoneal signs, no palpable pulsatile abdominal masses, no auscultated abdominal bruit : No CVAT Extremities: No edema TTP over right humerus, intact but painful range of motion right shoulder in flexion extension internal/external rotation Neuro: No focal neurological deficits, cranial nerves II through XII intact, 5/5 strength in all extremities. Intact sensation to light touch in all extremities, 2+ reflexes bilateral patella tendons. Normal gait. No ataxia. Intact axillary nerve function. Skin: No rash or lesions noted MEDICAL DECISION MAKING: Chief Complaint: Right shoulder pain External records reviewed: No recent cardiac catheterizations, echocardiograms noted in the chart Factors affecting care: Type 2 diabetes, GERD, hypothyroidism, hyperlipidemia, COPD Social determinants of health: none History obtained from others: none Consults: none MDM Narrative: Patient was initially hemodynamically stable, afebrile, nontoxic-appearing. Triage orders were placed including x-ray of her chest, x-ray right shoulder, CBC, BMP troponin and EKG I considered the following differential diagnosis: Right shoulder fracture, dislocation, arthritis, ACS, arrhythmia, electro disturbance or anemia pneumonia, pneumothorax I obtained a broad lab and imaging workup to further elucidate the etiology of the patient's complaints. ALL IMAGES (IF OBTAINED) HAVE BEEN PERSONALLY REVIEWED AND INTERPRETED BY MYSELF. CBC with no leukocytosis, mild anemia, no thrombocytopenia BMP without significant electrolyte disturbances, baseline CKD, High-sensitivity troponin is negative, no evidence of myocardial ischemia EKG with normal sinus rhythm, left axis deviation, right bundle branch block normal intervals, no STEMI x-ray of the right shoulder was read reviewed myself shows no evidence of obvious fracture dislocation, radiology I have personally reviewed the patient's chest x-ray. Chest x-ray is unremarkable for pulmonary edema, pneumothorax, pneumonia or focal cardiopulmonary abnormality. The synthesis of the patient's history, physical exam, labs and images suggest a right shoulder strain, right pectoralis strain. I have a low suspicion for PE, dissection or ACS at this time. I did offer the patient additional ED evaluation for delta troponin, possible admission however she refused stating she thinks her shoulder is causing her pain in her chest. She did not want to stay at this time she was alert and orient x 3 she capacity make her medical decisions and chose to be discharged home. She was aware of the risk and benefits of ongoing evaluation, further testing and possible admission and she chose to be discharged with close PCP follow-up. The patient and/or family, caregivers express understanding. The patient and/or family, caregivers agrees with the plan. Shared decision making: I will have a discussion with the patient and or visitors regarding risk/benefits of further testing or admission. They will be made aware of of the risk/benefits inherent in this decision they will be given the opportunity to voice understanding. Total critical care time today provided was at least 0 minutes. This excludes separately billable procedures. Critical care time (if documented) is secondary to the patient having high probability of clinically significant/life threatening deterioration in the patient's condition which required my urgent intervention. Impression: 1. Right shoulder strain 2. Chest pain 3. Anemia 4. CKD Dispo: Discharge Lab Data Attestation: I reviewed the patient's lab results. Labs: Laboratory Results - last 24 hr 04/29/23 21:52 WBC 6.9 RBC 3.91 L Hgb 11.8 L Hct 37.3 MCV 95.4 MCH 30.2 MCHC 31.6 L RDW Std Deviation 43.8 RDW Coeff of Ophelia 12.6 Plt Count 329 MPV 9.9 Immature Gran % (Auto) 0.300 Neut % (Auto) 60.8 Lymph % (Auto) 23.3 Burke % (Auto) 9.7 Eos % (Auto) 5.2 H Baso % (Auto) 0.7 Absolute Neuts (auto) 4.2 Absolute Lymphs (auto) 1.62 Nucleated RBC % 0 Sodium 139 Potassium 4.0 Chloride 109 H Carbon Dioxide 23.0 Anion Gap 7 BUN 22 H Creatinine 1.63 H Estim Creat Clear Calc 37.63 Est GFR (MDRD) Af Amer 40 L Est GFR (MDRD) Non-Af 33 L BUN/Creatinine Ratio 13.5 Glucose 92 Calcium 9.4 Troponin I High Sens 4 Radiography Diagnostic Testing: Clinical Impression(s) from Imaging Studies Shoulder X-Ray 04/29/23 19:39 IMPRESSION: Degenerative arthrosis Electronically Signed: Bright Moreno MD at 20:02 EST , Chest X-Ray 04/29/23 21:48 IMPRESSION: Chronic interstitial changes, no superimposed acute pulmonary process Electronically Signed: Bright Moreno MD at 22:08 EST , Discharge Plan Triage Chief Complaint: Upper Extremity Injury ED Provider: Kris Joyner Dx/Rx/DC Orders Clinical Impression: Strain of shoulder, right Instructions: Rotator Cuff Injury Prescriptions: No Action citalopram 20 mg tablet 20 mg PO DAILY levothyroxine 50 mcg capsule 50 mcg PO DAILY loratadine [Allergy Relief (loratadine)] 10 mg tablet 10 mg PO DAILY sucralfate 1 gram tablet 1 g PO BID trazodone 50 mg tablet 50 mg PO DAILY oxycodone 5 mg tablet 5 mg PO Q6H metformin 500 mg Tablet 500 mg PO BID atorvastatin 20 mg Tablet 20 mg PO DAILY loperamide 2 mg Capsule 2 mg PO DAILY PRN PRN (Reason: Loose Stool) Rx Instructions: administer after each loose stool until symptoms controlled; do not exceed 8 mg per 24 hrs metoprolol tartrate 100 mg Tablet 100 mg PO DAILY cyanocobalamin (vitamin B-12) [Vitamin B-12] 1,000 mcg Tablet 1,000 mcg PO DAILY clopidogrel 75 mg Tablet 75 mg PO DAILY pantoprazole 40 mg Tablet,Delayed Release (Dr/Ec) 40 mg PO DAILY montelukast 10 mg Tablet 10 mg PO DAILY bupropion HCl 150 mg Tablet Extended Release 24 Hr 150 mg PO DAILY topiramate 50 mg Tablet 50 mg PO BID Myrbetriq 50 mg Tablet Extended Release 24 Hr 50 mg PO DAILY cholecalciferol (vitamin D3) 1,250 mcg (50,000 unit) capsule 50,000 unit PO QWEEK Patient Comments: TAKE ONE CAPSULE BY MOUTH EVERY WEEK -SUNDAYS Primary Care Provider: Kari Macedo Referrals: Kari Macedo MD [Primary Care Provider] - Activity Restrictions/Additional Instructions: Thank you for trusting us with your care today! You have been diagnosed with a right shoulder strain. Please take Tylenol (2 pills, 650 mg), ibuprofen (2 pills, 400 mg) every 6 hours as needed for pain and fever control. Please perform progressive mobilization exercises which include moving your shoulder through all of its active ranges of motion including flexion, extension, internal/external rotation. Please do this daily up into the limit of pain. As your pain subsides and removed approximately increased please add weight to further strengthen the rotator cuff muscles. Please return to the emergency department if your symptoms change or worsen. Please follow with your primary care physician for further outpatient evaluation and management. Disposition Disposition: Home, Self Care Discharge Date/Time: 04/29/23 23:05
[2023-04-29 23:05] VITALS: BP 123/66; PULSE 75; RESP 18; O2SAT 96
[2023-04-29 23:54] LABS: Reflex Troponin-HS? (from REC) Y
== END 2023-04-29 23:05 | disposition home or self-care (01) ==
PROVIDERS: Emergency Provider Emergency Medicine; PCP Family Medicine; Visit Provider Emergency Medicine
DX: S46.911A Strain of unspecified muscle, fascia and tendon at shoulder and upper arm level, right arm, initial encounter (principal); J44.9 Chronic obstructive pulmonary disease, unspecified; E11.22 Type 2 diabetes mellitus with diabetic chronic kidney disease; R07.9 Chest pain, unspecified; N18.9 Chronic kidney disease, unspecified; D64.9 Anemia, unspecified; Z87.891 Personal history of nicotine dependence; X58.XXXA Exposure to other specified factors, initial encounter
CPT/HCPCS: 71045; 73030; 80048; 84484; 85025; 93005; 99283; A4216

== ENCOUNTER 2023-06-04 13:27 | Observation (INO) | payer MEDICARE, MEDICAID, SELFPAY ==
[2023-06-04] VITALS (7 sets, daily range): BP systolic 126–156; BP diastolic 46–99; PULSE 64–90; RESP 12–17; TEMP 36.6–37.1; O2SAT 95–100; BMI 35.9; BMI 35.6
--- NOTE | 2023-06-04 13:35 | RAD_ITS ---
STUDY: X-RAY CHEST REASON FOR EXAM: Female, 72 years old. Cough and weakness. TECHNIQUE: AP and lateral views of the chest. COMPARISON: Comparison is made with prior study dated April 29, 2023. FINDINGS: Persistent increased interstitial markings in both lungs worse in the right hemithorax suggestive of scarring. The lungs are clear and expanded. There is no demonstrated pleural abnormality. Normal size heart. Normal mediastinum and saul. Normal visualized pulmonary arteries. There is atherosclerotic tortuosity of the aortic arch and descending thoracic aorta. There are diffuse degenerative changes of the visualized thoracic spine. There is degenerative osteoarthritis of the bilateral shoulders. Prior fusion of the shoulders. There is no demonstrated abnormality of the visualized soft tissue structures of the upper abdomen. RAD/Chest PA and Lateral IMPRESSION: Stable examination. Findings suggestive of scarring at the lung bases more prominent on the right side. Electronically Signed: Royce Marcial MD at 14:42 EST ,
--- NOTE | 2023-06-04 13:35 | EKG12_ITS ---
Test Reason : Blood Pressure : / mmHG Vent. Rate : 074 BPM Atrial Rate : 074 BPM P-R Int : 166 ms QRS Dur : 130 ms QT Int : 440 ms P-R-T Axes : 028 -52 010 degrees QTc Int : 488 ms Normal sinus rhythm Right bundle branch block Left anterior fascicular block Bifascicular block Abnormal ECG Confirmed by Alex Jones ([id number]), online content editor FEDERICA GARCIA ([id number]) on 06/07/2023 9:41:24 AM Referred By: Confirmed By:Alex Jones
--- NOTE | 2023-06-04 13:42 | EX.ED.DYSGE1 ---
HPI <YARITZA Leung - Last Filed: 06/04/23 17:16> History of Present Illness Chief Complaint: General Illness Narrative Narrative: 72-year-old female with PMH of HTN, HLD, A-fib, GERD, COPD, CKD has had a few days of chills, generalized weakness, sore throat and cough, and decreased appetite. She is drinking fluids but states she has not urinated in 24 hours. She feels lightheaded like she might pass out anytime she gets up. She was in her PCPs office this morning but they were unsuccessful at placing an IV for hydration and sent her to the ED. Patient states her roommate recently had a cold. PFSH <YARITZA Leung - Last Filed: 06/04/23 17:16> [facility] Medical History (Updated 06/04/23 @ 17:[address] Do Dugan, DO) A-fib Rivera's esophagus Chronic kidney disease COPD (chronic obstructive pulmonary disease) Depression Diabetes mellitus PALACIOS (dyspnea on exertion) Fibromyalgia GERD (gastroesophageal reflux disease) Hiatal hernia High cholesterol HTN (hypertension) Hyperlipidemia Hypothyroidism IBS (irritable bowel syndrome) Insomnia Migraine headache Nicotine dependence, cigarettes, in remission NILA (obstructive sleep apnea) Osteoarthritis of right knee Overactive bladder Paroxysmal atrial fibrillation POTS (postural orthostatic tachycardia syndrome) Shoulder pain Syncope Tachycardia Vertigo Vitamin D deficiency Home Medications bupropion HCl 150 mg 24 hr tablet, extended release 150 mg PO DAILY 09/07/22 [History Last Taken 06/03/23] clopidogrel 75 mg tablet 75 mg PO DAILY 09/07/22 [History Last Taken 06/03/23] cyanocobalamin (vitamin B-12) 1,000 mcg tablet (Vitamin B-12) 1,000 mcg PO DAILY 09/07/22 [History Last Taken Unknown] loperamide 2 mg capsule 2 mg PO DAILY PRN PRN Loose Stool 09/07/22 [History Last Taken Unknown] metformin 500 mg tablet 500 mg PO BID 09/07/22 [History Last Taken 06/03/23] mirabegron 50 mg tablet,extended release 24 hr (Myrbetriq) 50 mg PO DAILY 09/07/22 [History Last Taken 06/03/23] montelukast 10 mg tablet 10 mg PO DAILY 09/07/22 [History Last Taken 06/03/23] pantoprazole 40 mg tablet,delayed release 40 mg PO DAILY 09/07/22 [History Last Taken 06/03/23] topiramate 50 mg tablet 50 mg PO BID 09/07/22 [History Last Taken 06/03/23] cholecalciferol (vitamin D3) 1,250 mcg (50,000 unit) capsule 50,000 unit PO QWEEK 09/22/22 [History Last Taken Unknown] citalopram 20 mg tablet 20 mg PO DAILY 11/19/22 [History Last Taken 06/03/23] loratadine 10 mg tablet (Allergy Relief (loratadine)) 10 mg PO DAILY 11/19/22 [History Last Taken 06/03/23] sucralfate 1 gram tablet 1 g PO BID 11/19/22 [History Last Taken 06/03/23] amitriptyline 25 mg tablet 25 mg PO QHS 05/26/23 [History Last Taken 06/03/23] rimegepant 75 mg disintegrating tablet (Nurtec ODT) 75 mg PO ONCE PRN migraine headache 05/26/23 [History Last Taken Unknown] albuterol sulfate 90 mcg/actuation aerosol inhaler 2 inh inhalation TID PRN shortness of breath or wheezing 05/28/23 [History Last Taken 06/03/23] atorvastatin 40 mg tablet 40 mg PO QHS 05/28/23 [History Last Taken 06/03/23] azelastine 137 mcg (0.1 %) nasal spray aerosol 1 spray intranasal BID 05/28/23 [History Last Taken 06/03/23] fluticasone fur. 200 mcg-umeclid 62.5 mcg-vilant 25 mcg inhalat.powder (Trelegy Ellipta) 1 inh inhalation DAILY 05/28/23 [History Last Taken 06/03/23] metoprolol succinate 100 mg tablet,extended release 24 hr 100 mg PO DAILY 05/28/23 [History Last Taken 06/03/23] tizanidine 4 mg tablet 4 mg PO BID PRN muscle spasticity 05/28/23 [History Last Taken Unknown] trazodone 100 mg tablet 100 mg PO QHS 05/28/23 [History Last Taken 06/03/23] levothyroxine 50 mcg tablet 50 mcg PO DAILY 06/04/23 [History Last Taken 06/03/23] Allergy/AdvReac Type Severity Reaction Status Date / Time adhesive tape Allergy Rash Verified 06/04/23 13:30 Sulfa (Sulfonamide Allergy Other Verified 06/04/23 13:30 Antibiotics) Family History (Updated 05/28/23 @ 17:38 by Tabitha Shelby) Mother Cancer Lung Father Myocardial infarction Son Asthma Surgical History History of ankle surgery History of carpal tunnel surgery Hx of appendectomy Hx of bilateral cataract extraction (~2020) Hx of hysterectomy Hx of neck surgery (~03/2023) Hx of shoulder surgery (~08/2021) Hx of tubal ligation Social History (Updated 05/28/23 @ 16:39 by Tabitha Shelby) Smoking Status: Former smoker how long ago did patient quit smokin years ago alcohol intake: never substance use type: does not use ROS <YARITZA Leung - Last Filed: 06/04/23 17:16> ROS ED ROS Narrative Constitutional: Negative for fever. Positive for chills, malaise. ENT: Positive for sore throat. CVS: Negative for palpitations, chest pain, syncope. Respiratory: Positive for cough. GI: Positive for diarrhea. Negative for abdominal pain, vomiting, melena, hematochezia. : Negative for dysuria. EXAM <YARITZA Leung - Last Filed: 06/04/23 17:16> Physical Exam Narrative Exam Narrative: CONST: Patient sitting in no acute distress. EYES: Normal inspection. ENT: Normal inspection, dry mucous membranes. NECK: Normal inspection. RESP: No respiratory distress, CTAB. CVS: Regular rate and rhythm, no murmur, no gallop. ABD: Soft and nontender, no guarding or rebound, nondistended. SKIN: Color normal, no rash, warm, dry, intact. EXTREMITIES: Normal appearance, no pedal edema. NEURO: Oriented x4. PSYCH: Normal affect. Const Vital Signs: 06/04/23 13:28 06/04/23 15:19 06/04/23 15:21 Temperature 97.8 F Temperature Source Temporal Pulse Rate 84 69 Respiratory Rate 16 Respiratory Effort Normal Respiratory Pattern Normal Blood Pressure 156/99 H 136/63 H Blood Pressure Mean 118 87 Pulse Ox 100 98 Oxygen Delivery Method Room Air Room Air 06/04/23 16:01 Temperature Temperature Source Pulse Rate 66 Respiratory Rate 17 Respiratory Effort Respiratory Pattern Normal Blood Pressure Blood Pressure Mean Pulse Ox Oxygen Delivery Method <Dr. Kris Joyner DO - Last Filed: 06/04/23 17:36> Physical Exam Const Vital Signs: 06/04/23 13:28 06/04/23 15:19 06/04/23 15:21 Temperature 97.8 F Temperature Source Temporal Pulse Rate 84 69 Respiratory Rate 16 Respiratory Effort Normal Respiratory Pattern Normal Blood Pressure 156/99 H 136/63 H Blood Pressure Mean 118 87 Pulse Ox 100 98 Oxygen Delivery Method Room Air Room Air 06/04/23 16:01 Temperature Temperature Source Pulse Rate 66 Respiratory Rate 17 Respiratory Effort Respiratory Pattern Normal Blood Pressure Blood Pressure Mean Pulse Ox Oxygen Delivery Method MDM <YARITZA Leung - Last Filed: 06/04/23 17:16> [facility] Narrative Medical decision making narrative: Patient has had flulike symptoms for the last 3 days. She is presyncopal with movement and feels dehydrated. She appears ill but nontoxic. Vital signs stable. She has very dry mucous membranes with an otherwise benign exam. IV fluids were ordered with blood work. CBC is WNL. BMP shows normal electrolytes and BUN 18, creatinine 1.86. Baseline is around 1.63. EKG is nonischemic and troponin is 7. Swab is positive for influenza A which explains her symptoms. After 1.5 L IV fluids cc bolus she was still very unsteady and only able to take a few steps around the room. She feels too weak to go home. Case will be discussed with the hospitalist for admission due to weakness, influenza A and dehydration. Lab Data Attestation: I reviewed the patient's lab results. Labs: Laboratory Results - last 24 hr 06/04/23 14:10 WBC 5.9 RBC 4.15 L Hgb 12.8 Hct 39.1 MCV 94.2 MCH 30.8 MCHC 32.7 RDW Std Deviation 44.5 H RDW Coeff of Ophelia 12.9 Plt Count 270 MPV 9.9 Immature Gran % (Auto) 0.200 Neut % (Auto) 66.8 Lymph % (Auto) 20.8 Meigs % (Auto) 9.5 Eos % (Auto) 2.4 Baso % (Auto) 0.3 Absolute Neuts (auto) 3.9 Absolute Lymphs (auto) 1.22 Nucleated RBC % 0 Sodium 138 Potassium 3.7 Chloride 107 Carbon Dioxide 22.0 Anion Gap 9 BUN 18 Creatinine 1.86 H Est GFR (MDRD) Af Amer 34 L Est GFR (MDRD) Non-Af 28 L BUN/Creatinine Ratio 9.7 L Glucose 104 Calcium 9.1 Troponin I High Sens 7 Radiography Diagnostic Testing: Clinical Impression(s) from Imaging Studies Chest X-Ray 06/04/23 13:35 IMPRESSION: Stable examination. Findings suggestive of scarring at the lung bases more prominent on the right side. Electronically Signed: Royce Marcial MD at 14:42 EST , ED attending interpretation of 2-view chest x-ray shows normal heart size, no acute infiltrate, edema, or effusion. <Dr. Kris Joyner, - Last Filed: 06/04/23 17:36> [facility] Lab Data Labs: Laboratory Results - last 24 hr 06/04/23 14:10 WBC 5.9 RBC 4.15 L Hgb 12.8 Hct 39.1 MCV 94.2 MCH 30.8 MCHC 32.7 RDW Std Deviation 44.5 H RDW Coeff of Ophelia 12.9 Plt Count 270 MPV 9.9 Immature Gran % (Auto) 0.200 Neut % (Auto) 66.8 Lymph % (Auto) 20.8 Meigs % (Auto) 9.5 Eos % (Auto) 2.4 Baso % (Auto) 0.3 Absolute Neuts (auto) 3.9 Absolute Lymphs (auto) 1.22 Nucleated RBC % 0 Sodium 138 Potassium 3.7 Chloride 107 Carbon Dioxide 22.0 Anion Gap 9 BUN 18 Creatinine 1.86 H Est GFR (MDRD) Af Amer 34 L Est GFR (MDRD) Non-Af 28 L BUN/Creatinine Ratio 9.7 L Glucose 104 Calcium 9.1 Troponin I High Sens 7 Radiography Diagnostic Testing: Clinical Impression(s) from Imaging Studies Chest X-Ray 06/04/23 13:35 IMPRESSION: Stable examination. Findings suggestive of scarring at the lung bases more prominent on the right side. Electronically Signed: Royce Marcial MD at 14:42 EST , Treatment and Re-Evaluation :: ED attending note: I evaluated the patient in conjunction with the [facility]. I agree with his/her statements and above findings. I have personally performed a face to face assessment of the patient and have reviewed the [facility] Note. I performed a substantive portion of the visit including all aspects of the following. I personally saw the patient performed chart review, physical exam, reviewed labs, imaging (if obtained), and formulated a treatment and management plan. This note was generated with [employer] dictation software. It may contain incorrect words, spelling, and punctuation that were not noted in review of the chart prior to signing. Discharge Plan Dx/Rx/DC Orders Clinical Impression: Influenza A, Chronic kidney disease, Dehydration Disposition Disposition: Acute Care [facility]
[2023-06-04 14:24] LABS: Absolute Lymphocyte Count 1.22 X10^3/uL (0.83-4.51); Absolute Neutrophil Count 3.9 X10^3/uL (2.0-7.7); Basophil# 0.02 X10^3/uL; Basophil% 0.3 % (0-1); Eosinophil# 0.14 X10^3/uL; Eosinophils% 2.4 % (0-5); Hematocrit 39.1 % (37-47); Hemoglobin 12.8 g/dL (12.0-15.0); Lymphocyte # 1.22 X10^3/ul (0.83-4.51); Lymphocyte % 20.8 % (19-41); Mean Corp Hgb Conc 32.7 g/dL (32-36); Mean Corpuscular Hgb 30.8 pg (27.0-32.0); Mean Corpuscular Volume 94.2 fL (81-99); Mean Platelet Vol. 9.9 fl (6.2-12.0); Monocyte# 0.56 X10^3/uL; Monocyte% 9.5 % (0-10); NRBC Flagged by Analyzer 0 % (0-5); Neutrophil # 3.92 X10^3/uL (2.7-7.7); Neutrophil % 66.8 % (47-70); Platelet Count 270 K/mm3 (150-450); RBC Distribution Width CV 12.9 % (11.6-14.6); RBC Distribution Width SD 44.5 fl (35.1-43.9); Red Blood Count 4.15 M/mm3 (4.2-5.4); White Blood Count 5.9 K/mm3 (4.4-11.0)
[2023-06-04 14:43] LABS: Anion Gap 9 (5-15); BUN 18 mg/dL (7-18); BUN/Creat Ratio 9.7 RATIO (10-20); Calcium,Total 9.1 mg/dL (8.5-10.1); Chloride 107 mmol/L (98-107); Creatinine, Serum 1.86 mg/dL (0.55-1.02); EST Glomerular Filtration Rate 28 mL/min (>60); Est Glom Filt Rate - Afr Amer 34 mL/min (>60); Glucose 104 mg/dL (74-106); Potassium 3.7 mmol/L (3.5-5.1); Sodium Level 138 mmol/L (136-145); Troponin-I HS 7 pg/mL (3.0-54.0)
[2023-06-04] MEDS: 0.9% Normal Saline (1000mL) 1,000 ML 999 ML IV (14:44)
[2023-06-04] MEDS: Ipratropium/Albuterol Sulfate 3 ML AMPUL.NEB INHALATION ×2 (16:00→23:26)
[2023-06-04] MEDS: 0.9% Normal Saline (500mL Bag) 500 ML 999 ML IV (16:24)
--- NOTE | 2023-06-04 17:26 | HP.PCM.HOS_ITS ---
HPI - General General Date of Admission: 06/04/23 Date of Service: 06/04/23 Chief Complaint: Lightheadedness/dehydration HPI Narrative JUSTINA SILVEIRA, is a 72 F who presented to the emergency department at [facility] with lightheadedness and dehydration. The patient reports that for about 3 days now she had been having some chills, generalized weakness, sore throat, cough and decreased appetite. Patient reports she feels like she is drinking enough fluid but has not really urinated in 24 hours. She was complaining of feeling lightheaded and felt like she may pass out when she gets up. She went to her primary care office this morning and they tried to give her IV fluids there however they were unsuccessful at placing an IV and sent her to the emergency department. She reports that her roommate has recently had a cold as well. She states she had some loose stool yesterday but her bowels are normal today. She reports she is having some mild nausea currently but denies any vomiting. She is having some generalized weakness as well but reports no focal changes. Vital signs on presentation showed temperature of 97.8, heart rate 84, blood pressure was 156/99, respiratory 16 oxygen saturations are 100% on room air. Her CBC is unremarkable and her differential is normal. Her chemistry panel shows normal electrolytes however serum creatinine is 1.86 and it appears her baseline runs between 1.6 and 1.7 so she does appear mildly dry compared to baseline. Troponin was normal at 7. Rapid flu a was positive with negative COVID and RSV. Chest x-ray was unremarkable for any acute findings but does show chronic scarring at the lung bases prominent on the right. EKG shows normal sinus rhythm with an anterior fascicular block and right bundle branch block with poor R wave progression but no ST-T wave changes concerning for acute ischemia. [facility] Medical History A-fib Rivera's esophagus Chronic kidney disease COPD (chronic obstructive pulmonary disease) Depression Diabetes mellitus PALACIOS (dyspnea on exertion) Fibromyalgia GERD (gastroesophageal reflux disease) Hiatal hernia High cholesterol HTN (hypertension) Hyperlipidemia Hypothyroidism IBS (irritable bowel syndrome) Insomnia Migraine headache Nicotine dependence, cigarettes, in remission NILA (obstructive sleep apnea) Osteoarthritis of right knee Overactive bladder Paroxysmal atrial fibrillation POTS (postural orthostatic tachycardia syndrome) Shoulder pain Syncope Tachycardia Vertigo Vitamin D deficiency Home Medications bupropion HCl 150 mg 24 hr tablet, extended release 150 mg PO DAILY 09/07/22 [History Last Taken 06/03/23] clopidogrel 75 mg tablet 75 mg PO DAILY 09/07/22 [History Last Taken 06/03/23] cyanocobalamin (vitamin B-12) 1,000 mcg tablet (Vitamin B-12) 1,000 mcg PO DAILY 09/07/22 [History Last Taken Unknown] loperamide 2 mg capsule 2 mg PO DAILY PRN PRN Loose Stool 09/07/22 [History Last Taken Unknown] metformin 500 mg tablet 500 mg PO BID 09/07/22 [History Last Taken 06/03/23] mirabegron 50 mg tablet,extended release 24 hr (Myrbetriq) 50 mg PO DAILY 09/07/22 [History Last Taken 06/03/23] montelukast 10 mg tablet 10 mg PO DAILY 09/07/22 [History Last Taken 06/03/23] pantoprazole 40 mg tablet,delayed release 40 mg PO DAILY 09/07/22 [History Last Taken 06/03/23] topiramate 50 mg tablet 50 mg PO BID 09/07/22 [History Last Taken 06/03/23] cholecalciferol (vitamin D3) 1,250 mcg (50,000 unit) capsule 50,000 unit PO QWEEK 09/22/22 [History Last Taken Unknown] citalopram 20 mg tablet 20 mg PO DAILY 11/19/22 [History Last Taken 06/03/23] loratadine 10 mg tablet (Allergy Relief (loratadine)) 10 mg PO DAILY 11/19/22 [History Last Taken 06/03/23] sucralfate 1 gram tablet 1 g PO BID 11/19/22 [History Last Taken 06/03/23] amitriptyline 25 mg tablet 25 mg PO QHS 05/26/23 [History Last Taken 06/03/23] rimegepant 75 mg disintegrating tablet (Nurtec ODT) 75 mg PO ONCE PRN migraine headache 05/26/23 [History Last Taken Unknown] albuterol sulfate 90 mcg/actuation aerosol inhaler 2 inh inhalation TID PRN shortness of breath or wheezing 05/28/23 [History Last Taken 06/03/23] atorvastatin 40 mg tablet 40 mg PO QHS 05/28/23 [History Last Taken 06/03/23] azelastine 137 mcg (0.1 %) nasal spray aerosol 1 spray intranasal BID 05/28/23 [History Last Taken 06/03/23] fluticasone fur. 200 mcg-umeclid 62.5 mcg-vilant 25 mcg inhalat.powder (Trelegy Ellipta) 1 inh inhalation DAILY 05/28/23 [History Last Taken 06/03/23] metoprolol succinate 100 mg tablet,extended release 24 hr 100 mg PO DAILY 05/28/23 [History Last Taken 06/03/23] tizanidine 4 mg tablet 4 mg PO BID PRN muscle spasticity 05/28/23 [History Last Taken Unknown] trazodone 100 mg tablet 100 mg PO QHS 05/28/23 [History Last Taken 06/03/23] levothyroxine 50 mcg tablet 50 mcg PO DAILY 06/04/23 [History Last Taken 06/03/23] Allergy/AdvReac Type Severity Reaction Status Date / Time adhesive tape Allergy Rash Verified 06/04/23 13:30 Sulfa (Sulfonamide Allergy Other Verified 06/04/23 13:30 Antibiotics) Family History Mother Cancer Lung Father Myocardial infarction Son Asthma Surgical History History of ankle surgery History of carpal tunnel surgery Hx of appendectomy Hx of bilateral cataract extraction (~2020) Hx of hysterectomy Hx of neck surgery (~03/2023) Hx of shoulder surgery (~08/2021) Hx of tubal ligation Social History (Updated 06/04/23 @ 19:[address] Do Dugan DO) household members: friend(s) housing: apartment Smoking Status: Former smoker how long ago did patient quit smokin years ago alcohol intake: never substance use type: does not use ROS Constitutional Constitutional: Reports anorexia, chills, fatigue, malaise and weakness; Denies change in weight, fever(s), night sweats or other Eyes Eyes: Denies blurry vision, change in eye color, change in vision, discharge from eye(s), double vision, erythema, eye pain, loss of vision or other ENT HEENT: Reports headache(s), nasal congestion, nasal discharge, post nasal drip and sore throat; Denies abnormal hearing, dysphagia, ear pain, epistaxis, hearing loss, sinus pressure or other Respiratory/Chest Respiratory/Chest: Reports cough, dyspnea, shortness of breath at rest and shortness of breath with exertion; Denies excessive phlegm production, hemoptysis, productive cough, wheezing or other Gastrointestinal Gastrointestinal: Reports loose stools and nausea; Denies abdominal pain, coffee ground emesis, constipation, diarrhea, dyspepsia, hematemesis, hematochezia, melena, vomiting or other Genitourinary Genitourinary: Denies burning urination, difficulty urinating, dysuria, hematuria, nocturia, urinary frequency, urinary hesitancy, urinary incontinence, urinary urgency or other Musculoskeletal Musculoskeletal: Reports joint pain, joint stiffness and myalgias Neurologic Neurologic: Denies abnormal gait, abnormal speech, confusion, disequilibrium, dizziness, focal weakness, headache(s), numbness, paresthesias, seizure-like activity, seizures, syncope, tingling, tremor(s) or other Psychiatric Psychiatric: Denies anxiety, depression, homicidal ideation, suicidal ideation or other Endocrine Endocrinology: Denies change in body appearance, cold intolerance, excessive sweating, heat intolerance, polydipsia, polyuria or other Hematologic/Lymphatic Hematologic/Lymphatic: Denies anemia, easy bleeding, easy bruising, lymphadenopathy or other Allergic/Immunologic Allergic/Immunologic: Denies rhinitis, hives, eczemia, asthma or other Vital Signs Vital Signs Vital Signs: 06/04/23 13:28 06/04/23 15:19 06/04/23 15:21 Temperature 97.8 F Temperature Source Temporal Pulse Rate 84 69 Respiratory Rate 16 Respiratory Effort Normal Respiratory Pattern Normal Blood Pressure 156/99 H 136/63 H Blood Pressure Mean 118 87 Pulse Ox 100 98 Oxygen Delivery Method Room Air Room Air 06/04/23 16:01 Temperature Temperature Source Pulse Rate 66 Respiratory Rate 17 Respiratory Effort Respiratory Pattern Normal Blood Pressure Blood Pressure Mean Pulse Ox Oxygen Delivery Method Weight Weight: 101.1 kg Body Mass Index (BMI) 35.9 Physical Exam Const alert, oriented x3, no apparent distress and well nourished; Negative for average body habitus or healthy appearing Constitutional Narrative: Obese, older, white female, sitting up in bed, friend at bedside, patient appears ill but not toxic, also appears chronically ill, stable on 3 and half liters nasal cannula General Appearance: cooperative HEENT normocephalic, head/scalp atraumatic and hearing grossly normal bilaterally HEENT Narrative: Dentition is poor, Mallampati is 3, no thrush, mucous membranes appear slightly dry Eyes PERRL, EOMs intact bilaterally and conjunctivae normal Eyes Narrative: No scleral icterus Neck no lymphadenopathy and supple Neck Narrative: Trachea midline, no thyroid enlargement Resp normal respiratory effort, no retractions, no use of accessory muscles and No clear to auscultation bilaterally Resp Narrative: Diffusely diminished worse at bases and apices, few intermittent scattered wheezes Auscultation: wheezes; Negative for rales or rhonchi Cardio regular rate, regular rhythm, S1 normal heart sound, S2 normal heart sound, no murmurs, no rub, no gallops and no clicks GI normal to inspection, nondistended, normoactive bowel sounds, soft to palpation and non-tender Extremity no clubbing, cyanosis or edema Extremity Narrative: Pedal pulses are 2+ Neuro oriented x3, CN's II-XII intact bilaterally, moves all extremities and no focal motor deficits Speech: speech normal Psych affect normal Psych Narrative: Eye contact is good, patient interacts appropriately Results Lab / Micro Data Attestation: I reviewed the patient's lab results. 06/04/23 14:10 06/04/23 14:10 Labs: Laboratory Results - last 24 hr 06/04/23 14:10: WBC 5.9, RBC 4.15 L, Hgb 12.8, Hct 39.1, MCV 94.2, MCH 30.8, MCHC 32.7, RDW Std Deviation 44.5 H, RDW Coeff of Ophelia 12.9, Plt Count 270, MPV 9.9, Immature Gran % (Auto) 0.200, Neut % (Auto) 66.8, Lymph % (Auto) 20.8, [place] % (Auto) 9.5, Eos % (Auto) 2.4, Baso % (Auto) 0.3, Absolute Neuts (auto) 3.9, Absolute Lymphs (auto) 1.22, Nucleated RBC % 0, Sodium 138, Potassium 3.7, Chloride 107, Carbon Dioxide 22.0, Anion Gap 9, BUN 18, Creatinine 1.86 H, Est GFR (MDRD) Af Amer 34 L, Est GFR (MDRD) Non-Af 28 L, BUN/Creatinine Ratio 9.7 L, Glucose 104, Calcium 9.1, Troponin I High Sens 7 Micro: Microbiology 06/04/23 14:06 Mucosa - Nose SARS-CoV-2, Influenza & RSV (PCR) - Final Influenzae A Imaging Radiology Impression Chest X-Ray 06/04/23 13:35 IMPRESSION: Stable examination. Findings suggestive of scarring at the lung bases more prominent on the right side. Electronically Signed: Royce Marcial MD at 14:42 EST , Assessment & Plan Assessment/Plan (1) Influenza A: (2) Dehydration: (3) Generalized weakness: (4) Debility: PLAN: Plan Acute influenza A -Patient is out of the window for Tamiflu as she is on day 3 of symptoms -Patient is not hypoxic -Pulmonary toilet with as needed and scheduled inhalers -Mucinex -Incentive spirometry -Acapella -Supportive care Serum creatinine elevation secondary to dehydration on CKD stage IIIb -Baseline renal function appears to run between 1.6 and 1.7 -Serum creatinine on presentation was 1.84 -Patient received 1 L of IV fluids emergency department and I have ordered tomorrow for the floor -Will ambulate patient tomorrow to see if her lightheadedness has improved with treatment of her dehydration Lightheadedness secondary to dehydration -IV fluids as noted above -Ambulate patient tomorrow to reassess COPD -Patient is not oxygen dependent -Continue home inhalers -Continue outpatient follow-up with pulmonary medicine Hypothyroidism -Continue home levothyroxine -Check a.m. TSH Vitamin D deficiency -Hold cholecalciferol and restart at discharge Hyperlipidemia -Continue home atorvastatin Rivera's esophagus/GERD/hiatal hernia -Continue home Carafate -Continue home PPI DM-2 -Hold home metformin -SSI -Accu-Cheks as ordered -Cardiac/carb controlled diet NILA -Patient noncompliant--> BiPAP was recommended previously -Utilize as needed oxygen if patient has any desaturations with sleep History of migraines -Hold home migraine medication and utilize if needed -Continue home Topamax Paroxysmal atrial fibrillation/POTS -Currently in sinus rhythm -Patient is not anticoagulated -Continue home metoprolol Hypertension -Continue home metoprolol IBS -Monitor clinically Overactive bladder -Continue home mirabegron Chronic pain -Continue home medication Insomnia -Continue home trazodone Obesity -BMI is 36.0 -Complicates treatment, prognosis, outcomes -Recommend weight loss History of tobacco abuse -Currently in remission -Recommend ongoing cessation DVT prophylaxis -Subcu heparin 3 times daily CODE STATUS -Full code is verified with patient on admission Charges/Coding Visit Charges Inpatient E&M: 22420 Init Hosp L2
[2023-06-04 20:17] LABS: Mucous, Urine 0 SEEN /hpf (<or=2+); Red Blood Cells-Urine 0 SEEN /hpf (0-5)
[2023-06-04] MEDS: Lactated Ringers 1,000 ML 100 ML IV (20:22)
[2023-06-04 20:42] LABS: Color, Urine Yellow (Yellow); Glucose, Dipstick Normal (Normal); Ketone-Dipstick Negative (Negative); Leukocyte Esterase-Dipstick 100 /ul (Negative); Nitrite-Dipstick Negative (Negative); Occult Blood-Urine Negative /ul (Negative); Protein-Dipstick Negative (Negative); Urine Bilirubin Dipstick Negative (Negative); Urine Clarity Clear (Clear); Urine Urobilinogen Normal (Normal)
[2023-06-04 20:50] LABS: Bacteria 1+ /hpf (None Seen); Squamous Epithelial Cells - UA 5-10 SEEN /hpf (5-10); White Blood Cells 0-5 SEEN /hpf (0-5)
[2023-06-04] MEDS: Atorvastatin Calcium 40 MG Tablet PO (22:35)
[2023-06-04] MEDS: Amitriptyline 25 MG Tablet PO (22:35)
[2023-06-04] MEDS: traZODone 100 MG Tablet PO (22:35)
[2023-06-04] MEDS: Heparin Injection (Vial) 5,000 UNIT/ML VIAL 5000 UNIT SC (22:37)
[2023-06-04] MEDS: Topiramate 50 MG Tablet PO (22:37)
[2023-06-04] MEDS: Azelastine HCl NASAL.SRY 1 SPRAY NASAL (22:37)
[2023-06-05] VITALS (8 sets, daily range): BP systolic 105–121; BP diastolic 46–70; PULSE 76–91; RESP 15–18; TEMP 36.6–37; O2SAT 92–98; BMI 36.1
[2023-06-05 00:09] LABS: Bedside Glucose 98 mg/dL (74-106)
[2023-06-05] MEDS: Heparin Injection (Vial) 5,000 UNIT/ML VIAL 5000 UNIT SC ×3 (06:18→21:25)
[2023-06-05] MEDS: Sucralfate 1 GM Tablet PO ×2 (06:18→16:36)
[2023-06-05] MEDS: Levothyroxine 50 MCG Tablet PO (06:18)
[2023-06-05] MEDS: Lactated Ringers 1,000 ML 100 ML IV (06:18)
[2023-06-05 06:52] LABS: Bedside Glucose 107 mg/dL (74-106)
[2023-06-05] MEDS: Ipratropium/Albuterol Sulfate 3 ML AMPUL.NEB INHALATION ×3 (06:55→19:59)
[2023-06-05] MEDS: Budesonide Respules 0.5 MG/2 ML AMPUL.NEB. INHALATION ×2 (06:55→19:59)
[2023-06-05 07:00] LABS: Absolute Lymphocyte Count 1.64 X10^3/uL (0.83-4.51); Absolute Neutrophil Count 2.2 X10^3/uL (2.0-7.7); Basophil# 0.04 X10^3/uL; Basophil% 0.9 % (0-1); Eosinophil# 0.13 X10^3/uL; Eosinophils% 2.9 % (0-5); Hematocrit 32.3 % (37-47); Hemoglobin 10.6 g/dL (12.0-15.0); Lymphocyte # 1.64 X10^3/ul (0.83-4.51); Lymphocyte % 36.2 % (19-41); Mean Corp Hgb Conc 32.8 g/dL (32-36); Mean Corpuscular Hgb 30.5 pg (27.0-32.0); Mean Corpuscular Volume 93.1 fL (81-99); Mean Platelet Vol. 10.2 fl (6.2-12.0); Monocyte# 0.52 X10^3/uL; Monocyte% 11.5 % (0-10); NRBC Flagged by Analyzer 0 % (0-5); Neutrophil # 2.19 X10^3/uL (2.7-7.7); Neutrophil % 48.3 % (47-70); Platelet Count 243 K/mm3 (150-450); RBC Distribution Width SD 44.1 fl (35.1-43.9); Red Blood Count 3.47 M/mm3 (4.2-5.4); White Blood Count 4.5 K/mm3 (4.4-11.0)
[2023-06-05 07:19] LABS: ALB/GLOB Ratio 0.8 RATIO (0.9-2.4); AST(SGOT) 16 U/L (15-37); Alanine Aminotransfer ALT/SGPT 12 U/L (13-56); Albumin, Serum 2.8 g/dL (3.2-5.0); Alkaline Phosphatase 52 U/L (45-117); Anion Gap 5 (5-15); BUN 13 mg/dL (7-18); BUN/Creat Ratio 9.2 RATIO (10-20); Calcium,Total 8.5 mg/dL (8.5-10.1); Chloride 116 mmol/L (98-107); Creatinine, Serum 1.41 mg/dL (0.55-1.02); EST Glomerular Filtration Rate 39 mL/min (>60); Est Glom Filt Rate - Afr Amer 47 mL/min (>60); Estimated Creatinine Clearance 43.37 ml/min; Globulin 3.3 g/dL (2.2-4.2); Glucose 110 mg/dL (74-106); Magnesium 1.9 mg/dL (1.6-2.6); Phosphorus 4.1 mg/dL (2.5-4.9); Potassium 3.3 mmol/L (3.5-5.1); Protein, Total 6.1 g/dL (6.4-8.2); Sodium Level 143 mmol/L (136-145)
--- NOTE | 2023-06-05 08:07 | CPS ---
Pt stated she would do SMI and PEP on own later.
[2023-06-05] MEDS: Azelastine HCl NASAL.SRY 1 SPRAY NASAL (08:53)
[2023-06-05] MEDS: Metoprolol(XL)Succ 100 MG Tablet PO (08:54)
[2023-06-05] MEDS: Pantoprazole Sodium 40 MG Tablet PO (08:55)
[2023-06-05] MEDS: Cyanocobalamin 500 MCG Tablet 1000 MCG PO (08:55)
[2023-06-05] MEDS: Loratadine 10 MG Tablet PO (08:55)
[2023-06-05] MEDS: Vibegron 75 MG TABLET PO (08:56)
[2023-06-05] MEDS: Montelukast 10 MG Tablet PO (08:57)
[2023-06-05] MEDS: Clopidogrel Bisulfate 75 MG Tablet PO (08:57)
[2023-06-05] MEDS: Topiramate 50 MG Tablet PO ×2 (08:58→21:26)
[2023-06-05] MEDS: Citalopram 20 MG Tablet PO (08:58)
[2023-06-05] MEDS: buPROPion (XL) 150 MG TABLET.XL PO (08:58)
[2023-06-05 11:04] LABS: Bedside Glucose 105 mg/dL (74-106)
--- NOTE | 2023-06-05 12:46 | CASEMGMT ---
Addendum entered and electronically signed by Rehana Olivo RN 06/05/23 13:08: Discussed home health options with pt. Pt states she is agreeable to [facility] and if they are not able to accept her, we will review other options to check if they are in-network with her insurance. Referral sent via [facility] to [facility]. NATHAN Loaiza Original Note: NATHAN DOOLEY Discharge Planning Assessment: Face to Face with patient for initial transition planning/care coordination assessment.?NATHAN DOOLEY introduced self and role at [facility]. Pt alert, oriented x3, voices understanding and agreeable to participating in assessment.? Care providers, pharmacy,?and demographics verified. Admitting dx: Influenza A, weakness? LACE Strata: 3 PCP: [facility] Specialists: [facility] --first appt on 06/15 Preferred Pharmacy: [facility] Insurance: [employer] MCR Dual Advantage/DARBY Prescription Benefit:?yes LNOK: granddaughter Miriam Living Arrangements: Pt lives with a roomate in a single story apartment with one step to enter. Pt states she is independent with ADLs and IADLs. Pt states she is able to ambulate in her home although states she gets SOB with minimal activity and she has to take rest breaks between activities. Transportation: pt drives and her roommate also drives if needed DME: quad and straight cane, rollator, tub bench SNF: none HHC: yes, provider in [place], unable to recall exact name. Pt's goal: return home Noted PT recommended additional tx at discharge. Reviewed this recommendation with pt. Pt states she does not leave her home often and would be interested in home health services. List of home health providers in pt's preferred geographic region and including quality and resource use data was obtained and provided to the pt. Insurance website not listing in-network providers. This NATHAN DOOLEY contacted [employer] and textiles sales representative states [facility] is the only provider showing as in-network but states there may be others. Explained this to pt and provided list that include other providers in case [facility] does not accept. We would need to check with alternates on Wednesday based on pt's preference. DC plan: Home with home health for SN and PT services. NATHAN Loaiza
--- NOTE | 2023-06-05 16:27 | PN.HOSP_ITS ---
Reason for Visit Reason for Visit: Diagnoses Dehydration (06/04/23) Influenza due to other identified influenza virus with other respiratory manifestations (06/04/23) Weakness (06/04/23) Other malaise (06/04/23) Subjective Subjective Patient was seen and examined today, she still complains of feeling weak and tired. Patient's creatinine today was 1.41 Objective Data Objective Data Vital Signs: Vital Signs Temp Pulse Resp BP Pulse Ox O2 Del Method 97.9 F 76 16 121/70 H 94 Room Air 06/05/23 08:51 06/05/23 13:06 06/05/23 13:06 06/05/23 08:54 06/05/23 08:51 06/05/23 08:51 Oxygen Delivery Method Room Air Weight: 101.5 kg Body Mass Index (BMI) 36.1 Intake & Output: Intake and Output for Last 24 Hours 06/03/23 06/04/23 06/05/23 23:59 23:59 23:59 Intake Total 1500 / 1500 1493.33 / 1493.33 Balance 1500 / 1500 1493.33 / 1493.33 Lab / Micro Data 06/05/23 06:28 06/05/23 06:28 Labs: Laboratory Results - last 24 hr 06/04/23 20:08: Urine Color Yellow, Urine Clarity Clear, Urine pH 6.0, Ur Specific [place] 1.010, Urine Protein Negative, Urine Glucose (UA) Normal, Urine Ketones Negative, Urine Occult Blood Negative, Urine Nitrite Negative, Urine Bilirubin Negative, Urine Urobilinogen Normal, Ur Leukocyte Esterase 100 H, Urine RBC 0 SEEN, Urine WBC 0-5 SEEN, Ur Squamous Epith Cells 5-10 SEEN, Urine Bacteria 1+, Urine Mucus 0 SEEN 06/04/23 23:52: POC Glucose 98 06/05/23 06:20: POC Glucose 107 H 06/05/23 06:28: WBC 4.5, RBC 3.47 L, Hgb 10.6 L, Hct 32.3 L, MCV 93.1, MCH 30.5, MCHC 32.8, RDW Std Deviation 44.1 H, RDW Coeff of Ophelia 13.0, Plt Count 243, MPV 1 0.2, Immature Gran % (Auto) 0.200, Neut % (Auto) 48.3, Lymph % (Auto) 36.2, [place] % (Auto) 11.5 H, Eos % (Auto) 2.9, Baso % (Auto) 0.9, Absolute Neuts (auto) 2.2, Absolute Lymphs (auto) 1.64, Nucleated RBC % 0, Sodium 143, Potassium 3.3 L, Chl oride 116 H, Carbon Dioxide 22.0, Anion Gap 5, BUN 13, Creatinine 1.41 H, Estim Creat Clear Calc 43.37, Est GFR (MDRD) Af Amer 47 L, Est GFR (MDRD) Non-Af 39 L, BUN/Creatinine Ratio 9.2 L, Glucose 110 H, Calcium 8.5, Phosphorus 4.1, Magnesium 1.9, Total Bilirubin 0.30, AST 16, ALT 12 L, Alkaline Phosphatase 52, Total Protein 6.1 L, Albumin 2.8 L, Globulin 3.3, Albumin/Globulin Ratio 0.8 L 06/05/23 10:44: POC Glucose 105 Micro: Microbiology 06/04/23 14:06 Mucosa - Nose SARS-CoV-2, Influenza & RSV (PCR) - Final Influenzae A Physical Exam Const alert, oriented x3 and no apparent distress General Appearance: cooperative, well kempt and well developed Orientation / Consciousness: awake, oriented to person, oriented to place and oriented to time HEENT normocephalic and moist oral mucous membranes Eyes PERRL, EOMs intact bilaterally and conjunctivae normal Neck supple, no JVD, thyroid normal and no carotid bruits General: trachea midline Resp normal respiratory effort, no retractions, no use of accessory muscles and clear to auscultation bilaterally Auscultation: Negative for rales, rhonchi or wheezes Cardio regular rate, regular rhythm, S1 normal heart sound, S2 normal heart sound, no murmurs, no rub and no gallops GI normal to inspection, nondistended, normoactive bowel sounds, soft to palpation, non-tender and non-distended Extremity no clubbing, cyanosis or edema Skin no rashes or lesions noted General Skin Exam: no breakdown Neuro oriented x3, CN's II-XII intact bilaterally, moves all extremities, no focal motor deficits and no sensory deficits noted Sensorium / Orientation: awake and alert Speech: speech normal Psych affect normal Assessment & Plan Assessment/Plan (1) Debility: PLAN: Plan 1. Acute influenza A-pulse ox will be monitored, supportive care will be given #2 serum creatinine elevation secondary to dehydration-patient's creatinine is improved today, BMP will be rechecked tomorrow #3 generalized weakness secondary to #1 #2-patient is being seen by PT and OT #4 chronic obstructive pulmonary disease-complicates care, medical course, recovery, and prognosis Total clinical time spent by myself addressing the patient's medical issues, reviewing all of her data, and collaborating with patient's care team: 25-minute Charges/Coding Visit Charges Inpatient E&M: 01765 Subs Hosp L1
[2023-06-05 16:55] LABS: Bedside Glucose 124 mg/dL (74-106)
[2023-06-05] MEDS: Acetaminophen 325 MG Tablet 650 MG PO (19:48)
[2023-06-05] MEDS: Atorvastatin Calcium 40 MG Tablet PO (21:25)
[2023-06-05] MEDS: Amitriptyline 25 MG Tablet PO (21:26)
[2023-06-05] MEDS: traZODone 100 MG Tablet PO (21:26)
[2023-06-05 23:24] LABS: Bedside Glucose 105 mg/dL (74-106)
[2023-06-06] VITALS (7 sets, daily range): BP systolic 95–110; BP diastolic 41–67; PULSE 70–76; RESP 16–18; TEMP 36.6–37; O2SAT 88–98; BMI 36.3
[2023-06-06] MEDS: Sucralfate 1 GM Tablet PO (05:14)
[2023-06-06] MEDS: Levothyroxine 50 MCG Tablet PO (05:14)
[2023-06-06] MEDS: Heparin Injection (Vial) 5,000 UNIT/ML VIAL 5000 UNIT SC (05:14)
[2023-06-06] MEDS: Ipratropium/Albuterol Sulfate 3 ML AMPUL.NEB INHALATION ×2 (06:35→12:50)
[2023-06-06] MEDS: Budesonide Respules 0.5 MG/2 ML AMPUL.NEB. INHALATION (06:35)
[2023-06-06 07:03] LABS: Bedside Glucose 97 mg/dL (74-106)
[2023-06-06] MEDS: Azelastine HCl NASAL.SRY 1 SPRAY NASAL (09:03)
[2023-06-06] MEDS: Cyanocobalamin 500 MCG Tablet 1000 MCG PO (09:03)
[2023-06-06] MEDS: Ergocalciferol 1.25 MG (50, 000 UNIT) Capsule PO (09:03)
[2023-06-06] MEDS: Pantoprazole Sodium 40 MG Tablet PO (09:03)
[2023-06-06] MEDS: Citalopram 20 MG Tablet PO (09:03)
[2023-06-06] MEDS: Clopidogrel Bisulfate 75 MG Tablet PO (09:04)
[2023-06-06] MEDS: Loratadine 10 MG Tablet PO (09:04)
[2023-06-06] MEDS: buPROPion (XL) 150 MG TABLET.XL PO (09:04)
[2023-06-06] MEDS: Metoprolol(XL)Succ 100 MG Tablet PO (09:04)
[2023-06-06] MEDS: Topiramate 50 MG Tablet PO (09:05)
[2023-06-06] MEDS: Montelukast 10 MG Tablet PO (09:05)
[2023-06-06] MEDS: Vibegron 75 MG TABLET PO (09:05)
[2023-06-06 10:26] LABS: Anion Gap 6 (5-15); BUN 18 mg/dL (7-18); BUN/Creat Ratio 12.7 RATIO (10-20); Calcium,Total 9.4 mg/dL (8.5-10.1); Chloride 115 mmol/L (98-107); Creatinine, Serum 1.42 mg/dL (0.55-1.02); EST Glomerular Filtration Rate 39 mL/min (>60); Est Glom Filt Rate - Afr Amer 47 mL/min (>60); Estimated Creatinine Clearance 43.25 ml/min; Glucose 103 mg/dL (74-106); Potassium 3.8 mmol/L (3.5-5.1); Sodium Level 143 mmol/L (136-145)
[2023-06-06 10:28] LABS: Bedside Glucose 90 mg/dL (74-106)
--- NOTE | 2023-06-06 10:51 | DCINST_ITS ---
Discharge Instructions Diet Discharge Diet: No restrictions Activity Discharge Activity: Return to Normal Activity Weight Bearing Status: Full weight bearing Follow Up Care Test Results: Test results from this visit will be discussed in further detail at your follow- up appointment, if applicable. Discharge Plan Admission Admit Date/Time: 06/04/23 17:19 Primary Reason for Your Visit: influenza A Attending Provider: Stan Smith Primary Care Provider: Kari Macedo Consulting Providers: Do Dugan Discharge Orders/Prescriptions Prescriptions: Continued citalopram 20 mg tablet 20 mg PO DAILY loratadine [Allergy Relief (loratadine)] 10 mg tablet 10 mg PO DAILY sucralfate 1 gram tablet 1 g PO BID amitriptyline 25 mg tablet 25 mg PO QHS Nurtec ODT 75 mg tablet,disintegrating 75 mg PO ONCE PRN (Reason: migraine headache) Rx Instructions: Q48H trazodone 100 mg tablet 100 mg PO QHS tizanidine 4 mg tablet 4 mg PO BID PRN (Reason: muscle spasticity) albuterol sulfate 90 mcg/actuation HFA aerosol inhaler 2 inh inhalation TID PRN (Reason: shortness of breath or wheezing) Patient Comments: INHALE TWO PUFFS BY MOUTH THREE TIMES DAILY NEEDED Trelegy Ellipta 200-62.5-25 mcg blister with device 1 inh inhalation DAILY Patient Comments: INHALE 1 PUFF BY MOUTH EVERY DAY azelastine 137 mcg (0.1 %) aerosol,spray 1 spray intranasal BID Patient Comments: INSTILL ONE SPRAY IN EACH NOSTRIL TWICE DAILY (ORIG) metoprolol succinate 100 mg tablet extended release 24 hr 100 mg PO DAILY Patient Comments: TAKE ONE TABLET BY MOUTH DAILY AT 9AM atorvastatin 40 mg tablet 40 mg PO QHS Patient Comments: TAKE ONE TABLET BY MOUTH DAILY AT 5PM FOR 3 MONTHS (90 DAYS) metformin 500 mg Tablet 500 mg PO BID loperamide 2 mg Capsule 2 mg PO DAILY PRN PRN (Reason: Loose Stool) Rx Instructions: administer after each loose stool until symptoms controlled; do not exceed 8 mg per 24 hrs cyanocobalamin (vitamin B-12) [Vitamin B-12] 1,000 mcg Tablet 1,000 mcg PO DAILY clopidogrel 75 mg Tablet 75 mg PO DAILY pantoprazole 40 mg Tablet,Delayed Release (Dr/Ec) 40 mg PO DAILY montelukast 10 mg Tablet 10 mg PO DAILY bupropion HCl 150 mg Tablet Extended Release 24 Hr 150 mg PO DAILY topiramate 50 mg Tablet 50 mg PO BID Myrbetriq 50 mg Tablet Extended Release 24 Hr 50 mg PO DAILY cholecalciferol (vitamin D3) 1,250 mcg (50,000 unit) capsule 50,000 unit PO QWEEK Patient Comments: TAKE ONE CAPSULE BY MOUTH EVERY WEEK -SUNDAYS levothyroxine 50 mcg tablet 50 mcg PO DAILY Referrals / Follow Up: Kari Macedo MD [Primary Care Provider] - Within 2 Weeks Disposition Disposition (needs filled in before D/C Order can be placed): Home, Self Care
--- NOTE | 2023-06-06 10:56 | PCM.DC.SUM ---
Providers Date of Admission: 06/04/23 Date of Discharge: 06/06/23 Primary Care Physician: Kari Macedo MD Reason For Visit: INFLUENZA A/ORTHOSTATIS/GENERALIZED WEAKNESS Diagnosis Discharge Diagnosis (1) Debility: Status: Acute Code(s): R53.81 - Other malaise Plan 1. Acute influenza A-pulse ox will be monitored, supportive care will be given #2 serum creatinine elevation secondary to dehydration-patient's creatinine is improved today, BMP will be rechecked tomorrow #3 generalized weakness secondary to #1 #2-patient is being seen by PT and OT #4 chronic obstructive pulmonary disease-complicates care, medical course, recovery, and prognosis Total clinical time spent by myself addressing the patient's medical issues, reviewing all of her data, and collaborating with patient's care team: 25-minute Medications at Discharge Home Medications bupropion HCl 150 mg 24 hr tablet, extended release 150 mg PO DAILY 09/07/22 clopidogrel 75 mg tablet 75 mg PO DAILY 09/07/22 cyanocobalamin (vitamin B-12) 1,000 mcg tablet (Vitamin B-12) 1,000 mcg PO DAILY 09/07/22 loperamide 2 mg capsule 2 mg PO DAILY PRN PRN Loose Stool 09/07/22 metformin 500 mg tablet 500 mg PO BID 09/07/22 mirabegron 50 mg tablet,extended release 24 hr (Myrbetriq) 50 mg PO DAILY 09/07/22 montelukast 10 mg tablet 10 mg PO DAILY 09/07/22 pantoprazole 40 mg tablet,delayed release 40 mg PO DAILY 09/07/22 topiramate 50 mg tablet 50 mg PO BID 09/07/22 cholecalciferol (vitamin D3) 1,250 mcg (50,000 unit) capsule 50,000 unit PO QWEEK 09/22/22 citalopram 20 mg tablet 20 mg PO DAILY 11/19/22 loratadine 10 mg tablet (Allergy Relief (loratadine)) 10 mg PO DAILY 11/19/22 sucralfate 1 gram tablet 1 g PO BID 11/19/22 amitriptyline 25 mg tablet 25 mg PO QHS 05/26/23 rimegepant 75 mg disintegrating tablet (Nurtec ODT) 75 mg PO ONCE PRN migraine headache 05/26/23 albuterol sulfate 90 mcg/actuation aerosol inhaler 2 inh inhalation TID PRN shortness of breath or wheezing 05/28/23 atorvastatin 40 mg tablet 40 mg PO QHS 05/28/23 azelastine 137 mcg (0.1 %) nasal spray aerosol 1 spray intranasal BID 05/28/23 fluticasone fur. 200 mcg-umeclid 62.5 mcg-vilant 25 mcg inhalat.powder (Trelegy Ellipta) 1 inh inhalation DAILY 05/28/23 metoprolol succinate 100 mg tablet,extended release 24 hr 100 mg PO DAILY 05/28/23 tizanidine 4 mg tablet 4 mg PO BID PRN muscle spasticity 05/28/23 trazodone 100 mg tablet 100 mg PO QHS 05/28/23 levothyroxine 50 mcg tablet 50 mcg PO DAILY 06/04/23 Hospital Course Operations None Procedures None Summary of Care Provided Minutes Spent on Discharge: 30 Hospital Course: This 72-year-old white female was seen in the emergency room at [facility] with a chief complaint of chills, generalized weakness, sore throat, and cough. She went to her PCPs office but they were unsuccessful at placing an IV for hydration so she was sent to the ER for evaluation. Labs obtained in the emergency room showed a normal white blood cell count, hemoglobin was 12.8, creatinine was elevated at 1.86, chest x-ray showed a stable examination with evidence of scarring at the lung bases more prominent on the right side. Patient's influenza A test was positive. Patient was given IV fluids in the emergency room but she still felt too weak to go home. Patient was admitted to PCU, she was given IV fluids, labs were monitored, and she was seen by PT and OT. Patient's creatinine improved. On 06/06/2023, patient was seen and examined: On examination she appeared in good health and spirits, she does not appear to be in any distress. Vital signs as documented. Skin warm and dry and without overt rashes. Neck without JVD, thyroid appears normal, trachea is midline, neck is supple. Lungs clear, normal air movement was noted. Heart exam notable for regular rhythm, normal sounds and absence of murmurs, rubs or gallops. Abdomen unremarkable and without evidence of organomegaly, masses, or abdominal aortic enlargement, bowel sounds are present in all 4 quadrants, no abdominal tenderness was noted. Extremities nonedematous, no cyanosis was noted, no clubbing was noted. Neuro: Cranial nerves II through XII are grossly intact, no focal motor deficits were noted, sensation to light touch and pinprick is intact, motor exam 5/5 throughout. Psych: Patient is alert and oriented x3, she does not appear anxious or depressed, she does not appear agitated. Patient was discharged home in stable condition on 06/06/2023. Weight / BMI Weight Weight: 102.3 kg Body Mass Index (BMI) 36.3 ABG / Lab / Microbiology Data 06/05/23 06:28 06/06/23 10:06 Laboratory: Laboratory Results - last 24 hr 06/05/23 10:44: POC Glucose 105 06/05/23 16:34: POC Glucose 124 H 06/05/23 21:31: POC Glucose 105 06/06/23 06:36: POC Glucose 97 06/06/23 10:04: POC Glucose 90 06/06/23 10:06: Sodium 143, Potassium 3.8, Chloride 115 H, Carbon Dioxide 22.0, Anion Gap 6, BUN 18, Creatinine 1.42 H, Estim Creat Clear Calc 43.25, Est GFR (MDRD) Af Amer 47 L, Est GFR (MDRD) Non-Af 39 L, BUN/Creatinine Ratio 12.7, Glucose 103, Calcium 9.4 Microbiology: Microbiology 06/04/23 14:06 Mucosa - Nose SARS-CoV-2, Influenza & RSV (PCR) - Final Influenzae A D/C Instructions Discharge Diet: No restrictions Weight Bearing Status: Full weight bearing Meaningful Use Info Meaningful Use Diagnoses (Choose all that apply): None applicable Discharge Plan Admission Admit Date/Time: 06/04/23 17:19 Primary Reason for Your Visit: influenza A Attending Provider: Stan Smith Primary Care Provider: Kari Macedo Consulting Providers: Do Dugan Discharge Orders/Prescriptions Prescriptions: Continued citalopram 20 mg tablet 20 mg PO DAILY loratadine [Allergy Relief (loratadine)] 10 mg tablet 10 mg PO DAILY sucralfate 1 gram tablet 1 g PO BID amitriptyline 25 mg tablet 25 mg PO QHS Nurtec ODT 75 mg tablet,disintegrating 75 mg PO ONCE PRN (Reason: migraine headache) Rx Instructions: Q48H trazodone 100 mg tablet 100 mg PO QHS tizanidine 4 mg tablet 4 mg PO BID PRN (Reason: muscle spasticity) albuterol sulfate 90 mcg/actuation HFA aerosol inhaler 2 inh inhalation TID PRN (Reason: shortness of breath or wheezing) Patient Comments: INHALE TWO PUFFS BY MOUTH THREE TIMES DAILY NEEDED Trelegy Ellipta 200-62.5-25 mcg blister with device 1 inh inhalation DAILY Patient Comments: INHALE 1 PUFF BY MOUTH EVERY DAY azelastine 137 mcg (0.1 %) aerosol,spray 1 spray intranasal BID Patient Comments: INSTILL ONE SPRAY IN EACH NOSTRIL TWICE DAILY (ORIG) metoprolol succinate 100 mg tablet extended release 24 hr 100 mg PO DAILY Patient Comments: TAKE ONE TABLET BY MOUTH DAILY AT 9AM atorvastatin 40 mg tablet 40 mg PO QHS Patient Comments: TAKE ONE TABLET BY MOUTH DAILY AT 5PM FOR 3 MONTHS (90 DAYS) metformin 500 mg Tablet 500 mg PO BID loperamide 2 mg Capsule 2 mg PO DAILY PRN PRN (Reason: Loose Stool) Rx Instructions: administer after each loose stool until symptoms controlled; do not exceed 8 mg per 24 hrs cyanocobalamin (vitamin B-12) [Vitamin B-12] 1,000 mcg Tablet 1,000 mcg PO DAILY clopidogrel 75 mg Tablet 75 mg PO DAILY pantoprazole 40 mg Tablet,Delayed Release (Dr/Ec) 40 mg PO DAILY montelukast 10 mg Tablet 10 mg PO DAILY bupropion HCl 150 mg Tablet Extended Release 24 Hr 150 mg PO DAILY topiramate 50 mg Tablet 50 mg PO BID Myrbetriq 50 mg Tablet Extended Release 24 Hr 50 mg PO DAILY cholecalciferol (vitamin D3) 1,250 mcg (50,000 unit) capsule 50,000 unit PO QWEEK Patient Comments: TAKE ONE CAPSULE BY MOUTH EVERY WEEK -SUNDAYS levothyroxine 50 mcg tablet 50 mcg PO DAILY Referrals / Follow Up: Kari Macedo MD [Primary Care Provider] - Within 2 Weeks Disposition Disposition (needs filled in before D/C Order can be placed): Home, Self Care Charges/Coding Visit Charges Inpatient E&M: 69659 Disch Hosp
--- NOTE | 2023-06-06 12:02 | NURSING ---
PIV removed. paperwork given and reviewed with pt.
--- NOTE | 2023-06-07 11:07 | CASEMGMT ---
Addendum entered and electronically signed by Rehana Olivo RN 06/07/23 12:45: Pt returned call and left voicemail to call back. This RN CM called pt and discussed [facility] no longer providing services. Pt states she feels she is doing better, denies any difficulty breathing and states she is ambulating around her home without difficulty. Pt denies the need for home health services at this time. Pt denies any additional questions or concerns re: her discharge instruction. DC Plan: Home, self care. NATHAN Loaiza Original Note: RN MIAH F/U: No response received from [facility] referral. Was informed this agency is now closed. This NATHAN CM attempted to contact pt and voicemail received. Message left requesting a return call. NATHAN Loaiza
== END 2023-06-06 13:20 | disposition home or self-care (01) | DRG 641 ==
LOC: ED 17:32 → PCU 17:36
PROVIDERS: Physician Assistant; Admitting Provider Internal Medicine; Emergency Provider Emergency Medicine; PCP Family Medicine; Visit Provider Internal Medicine
DX: E86.0 Dehydration (principal); J44.9 Chronic obstructive pulmonary disease, unspecified; I48.0 Paroxysmal atrial fibrillation; E11.22 Type 2 diabetes mellitus with diabetic chronic kidney disease; N18.32 Chronic kidney disease, stage 3b; E03.9 Hypothyroidism, unspecified; I12.9 Hypertensive chronic kidney disease with stage 1 through stage 4 chronic kidney disease, or unspecified chronic kidney disease; J10.1 Influenza due to other identified influenza virus with other respiratory manifestations; E55.9 Vitamin D deficiency, unspecified; K58.9 Irritable bowel syndrome, unspecified; K22.70 Barrett's esophagus without dysplasia; M79.7 Fibromyalgia; G47.33 Obstructive sleep apnea (adult) (pediatric); E78.00 Pure hypercholesterolemia, unspecified; K21.9 Gastro-esophageal reflux disease without esophagitis; E66.9 Obesity, unspecified; N32.81 Overactive bladder; G47.00 Insomnia, unspecified; G89.29 Other chronic pain; Z79.51 Long term (current) use of inhaled steroids; Z79.02 Long term (current) use of antithrombotics/antiplatelets; Z79.899 Other long term (current) drug therapy; Z79.84 Long term (current) use of oral hypoglycemic drugs; Z87.891 Personal history of nicotine dependence; Z68.35 Body mass index [BMI] 35.0-35.9, adult
CPT/HCPCS: 36415; 71046; 80048; 80053; 81001; 82962; 83735; 84100; 84484; 85025; 87631; 93005; 94640; 94668; 96360; 96361; 96372; 97162; 97166; 97530; 97535; 97802; 99221; 99284; J7030; J7040; J7120; A4216; G0378

== ENCOUNTER → 2023-08-03 | Outpatient (CLI) | payer MEDICARE, MEDICAID, SELFPAY ==
[2023-08-03 17:49] LABS: Absolute Lymphocyte Count 1.29 X10^3/uL (0.83-4.51); Basophil# 0.06 X10^3/uL; Eosinophil# 0.27 X10^3/uL; Eosinophils% 4.3 % (0-5); Hematocrit 37.9 % (37-47); Hemoglobin 11.8 g/dL (12.0-15.0); Lymphocyte # 1.29 X10^3/ul (0.83-4.51); Lymphocyte % 20.5 % (19-41); Mean Corp Hgb Conc 31.1 g/dL (32-36); Mean Corpuscular Hgb 29.4 pg (27.0-32.0); Mean Corpuscular Volume 94.3 fL (81-99); Monocyte% 9.6 % (0-10); NRBC Flagged by Analyzer 0 % (0-5); Neutrophil # 4.04 X10^3/uL (2.7-7.7); Neutrophil % 64.3 % (47-70); Platelet Count 357 K/mm3 (150-450); RBC Distribution Width CV 13.9 % (11.6-14.6); RBC Distribution Width SD 47.9 fl (35.1-43.9); Red Blood Count 4.02 M/mm3 (4.2-5.4); White Blood Count 6.3 K/mm3 (4.4-11.0)
[2023-08-03 18:15] LABS: Vitamin B12 449 pg/mL (211-911); Vitamin D,25 Hydroxy 74.6 ng/mL
[2023-08-03 18:22] LABS: ALB/GLOB Ratio 0.8 RATIO (0.9-2.4); AST(SGOT) 23 U/L (15-37); Alanine Aminotransfer ALT/SGPT 19 U/L (13-56); Albumin, Serum 3.4 g/dL (3.2-5.0); Alkaline Phosphatase 62 U/L (45-117); Anion Gap 7 (5-15); BUN 14 mg/dL (7-18); BUN/Creat Ratio 9.6 RATIO (10-20); Chloride 106 mmol/L (98-107); Creatinine, Serum 1.46 mg/dL (0.55-1.02); EST Glomerular Filtration Rate 37 mL/min (>60); Est Glom Filt Rate - Afr Amer 45 mL/min (>60); Ferritin 31 ng/mL (8-252); Globulin 4.1 g/dL (2.2-4.2); Glucose 93 mg/dL (74-106); Iron 55 ug/dL (50-170); Iron Binding Capacity,Total 338 ug/dL (250-450); PERCENT IRON SATURATION 16.3 % (15.0-55.0); Potassium 4.1 mmol/L (3.5-5.1); Protein, Total 7.5 g/dL (6.4-8.2); Sodium Level 138 mmol/L (136-145)
== END | disposition home or self-care (01) ==
LOC: MFPLAB 15:08
PROVIDERS: PCP Family Medicine; Visit Provider Family Medicine
DX: E55.9 Vitamin D deficiency, unspecified (principal); D64.9 Anemia, unspecified; E87.6 Hypokalemia
CPT/HCPCS: 36415; 80053; 82306; 82607; 82728; 82746; 83540; 83550; 85025